=== PATIENT | female | born 1955 | race Caucasian/White ===

== ENCOUNTER 2024-10-17 15:55 | Outpatient (CLI) | payer BC, SELFPAY ==
--- NOTE | ~2024-10-17 | MR_ITS ---
EXAMINATION: MR abdomen wo/w con DATE: 10/17/2024 17:10 INDICATION: Abnormal CT scan TECHNIQUE: Magnetic resonance imaging (MRI) of the abdomen was performed without and with 15 mL Multi aileen intravenous contrast. Sequences included coronal T2-weighted SS-FSE, coronal and axial FS 2D-F IESTA, axial STIR FSE, axial T2-weighted SS-FSE, axial T2-weighted FS SS-FSE, axial diffusion-weighte d SE, axial dual-echo T1-weighted FSPGR, and axial and coronal T1-weighted LAVA. Postcontrast axial T 1-weighted LAVA images were obtained in a time course. Postcontrast coronal T1-weighted LAVA images w ere obtained. COMPARISON: None. FINDINGS: Heart size is normal. No pericardial or pleural effusion. There are few scattered <5 mm T2 hyperinten se nonenhancing hepatic cyst. There is mild intra and extra hepatic biliary ductal dilation likely re lated to prior cholecystectomy with the common bile duct measuring up to 8 mm. No choledocholithiasis . Spleen, pancreas and bilateral adrenal glands are normal. There are couple T2 hyperintense nonenhan cing cysts at the upper pole of the right kidney the larger measuring up to 2.7 cm. There is a 9 mm l ess T2 hyperintense nonenhancing likely complex proteinaceous cyst at the interpolar region of the le ft kidney. /Portions of bowels are unremarkable. No pathologically enlarged abdominal or upper pelvic lymphadenopathy. Mild thoracic levocurvature with mild thoracic and moderate lumbar spondylosis. IMPRESSION: 1. Bilateral renal cysts including a 9 mm likely complex proteinaceous cyst on the left. Reviewed, dictated and finalized at location A.
--- OUTSIDE RECORDS SUMMARY | 2024-10-17 16:34 | XMS_ITS | Encounter Summary ---
Author Organization [facility] Healthcare Address [address] [place] [address] Care Team Providers Care Honey Processor Name Role Phone Dulce Capellan Primary Care Provider [phone]- [phone] Encounter Details Date Type Department Care Team (Late st Contact Info) Description 10/06/2024 Results Follow-Up [facility] Family Medicine [address] [place] [address] Dulce Capellan PA [address] [place] [address] Social History Tobacco Use Types Packs/Day Years Used Date Smoking Tobacco: Every Day Cigarettes 2 40 Smokeless Tobacco: Never Alcohol Use Standard Drinks/Week Comments Never 0 (1 standard drink = 0.6 oz pur e alcohol) AUDIT-C Answer Date Recorded Q1: How often do you have a drink containing alcohol? Never 09/27/2024 Q2: How many drinks containi ng alcohol do you have on a typical day when you are drinking? Patient does not drink Q3: How often do you have si x or more drinks on one occasion? 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 Gender Identity Female 10/25/2019 7:49 AM CDT Sexual Orientation Straight 10/25/2019 7: 49 AM CDT Occupation Industry Job Start Date Job End Date [facility] [employer] Company Not on jackson e Not on file Not on file documented as of this encounter Plan of Treatment Not on file documented as of this encounter Visit Diagnoses Not on filedocumented in this encounter Care Teams Honey Processor Relationship Specialty Start Date End Date Dulce Capellan PA [address] [facility] [address] [place] [address] PCP - General 07/30/18 documented as of this encounter
--- OUTSIDE RECORDS SUMMARY | 2024-10-17 16:34 | XMS_ITS | Referral Summary ---
Author Organization [facility] [address] [facility] Address [address] [place] [address] Care Team Providers Care Websphere Portal Developer Name Role Phone Dulce Capellan Primary Care Provider [phone]- [phone] Encounters Date Type Department Care Team Description 10/06/2024 Results Follow-Up [place] [id number] [facility] [address] [place] [phone] Dulce Capellan PA 10/06/2024 8:25 AM CDT - 10/06/2024 11:59 PM CDT Hospital Encounter [facility] Office Bldg [address] [address] Menopause Discharge Disposition: Discharge to home or self care 09/27/2024 8:00 AM CDT Office Visit [place] [address] [facility] [address] [place] [phone] uDlce Capellan PA Type 2 diabetes mellitus without complication, without long-term current use of insulin (HCC) (Primary Dx); Hyperlipidemia associated with type 2 diabetes mellitus (HCC); Hypertension associated with diabetes (HCC); Polycythemia; Acquired hypothyroidism; Other emphysema (HCC); Cigarette smoker; Primary osteoarthritis of both hands; OAB (overactive bladder); BMI 26.0-26.9,adult 09/14/2024 Results Follow-Up [facility] [address] [facility] [address] [place] [address] Dulce Capellan PA 09/01/2024 Results Follow-Up [facility] [address] [place] [address] [address] [place] [address] Dulce Capellan PA 08/24/2024 7:10 AM CDT - 08/24/2024 11:59 PM CDT Hospital Encounter [address] [address] Discharge Disposition: Discharge to home or self care 08/23/2024 6:23 AM CDT - 08/23/2024 11:59 PM CDT Hospital Encounter [address] [address] Cigarette smoker Discharge Disposition: Discharge to home or self care 08/18/2024 Orders Only [address] [place] [phone] Dulce Capellan PA Hyperlipidemia associated with type 2 diabetes mellitus (HCC) (Primary Dx); Hypertension associated with diabetes (HCC); Acquired hypothyroidism; Type 2 diabetes mellitus without complication, without long-term current use of insulin (HCC) from Last 3 Months Allergies No known active allergies Medications coenzyme Q10 200 mg capsule Take 1 capsule (200 mg total) by mouth daily Active cholecalciferol (VITAMIN D-3) 5,000 unit tablet Ac tive ginkgo biloba 40 mg tablet Take by mouth Active iiezwy-hgpg-rfyx- levomef-silic 10-50-500-0.5 mg capsule Take by mouth Active magnesium oxide 400 mg magnesium capsule Take 1 capsule by mouth daily Active multivitamin tabletIndications :Vitamin Deficiency Prevention Take 1 tablet by mouth Active budesonide-glycop yr-formoterol (Breztri Aerosphere) 160-9-4.8 mcg/actuation inhalerIndication s:Other emphysema (HCC) Inhale 2 puffs 2 (two) times a day 024 Active Additional Information Patient not taking.Reported on 09/27/2024 levothyroxine (SYNTHROID) 50 mcg tabletIndications :Acquired hypothyroidism TAKE 1 TABLET BY MOUTH ONCE DAILY BEFORE BREAKFAST 100 tablet 1 025 Active TURMERIC ORAL Take by mouth Ac tive aspirin 81 mg chewable tablet Take 1 tablet (81 mg total) by mouth daily Active lisinopriL (PRINIVIL,ZESTRIL ) 5 mg tabletIndications :Essential hypertension Take 1 tablet by mouth once daily 90 tablet 025 Active rosuvastatin (CRESTOR) 10 mg tabletIndications :Mixed hyperlipidemia Take 1 tablet by mouth once daily 90 tablet 025 Active tolterodine LA (DETROL LA) 4 mg 24 hr capsule Take 1 capsule by mouth once daily 90 capsule 025 Active tolterodine LA (DETROL LA) 4 mg 24 hr capsule Take 1 capsule by mouth once daily 90 capsule 025 2024 Discontinued rosuvastatin (CRESTOR) 10 mg tabletIndications :Mixed hyperlipidemia Take 1 tablet by mouth once daily 90 tablet 025 2024 Discontinued lisinopriL (PRINIVIL,ZESTRIL ) 5 mg tabletIndications :Essential hypertension Take 1 tablet by mouth once daily 90 tablet 025 2024 Discontinued Active Problems Problem Noted Date Diagnosed Date Primary osteoarthritis of both hands 09/27/2024 Assessment & Plan (09/27/2024 10:00 AM CDT): Patient feels stiffness in multiple joints, including the hands. Has a history of sedentary lifestyle, especially with sitting at work. RA workup revealed negative MADDISON. Likely osteoarthritic changes with age. - Stay as active as you can to prevent joint stiffness - Keep taking your Vitamin D and B12 supplements - Get plenty of rest and stay hydrated COPD (chronic obstructive pulmonary disease) Assessment & Plan (09/27/2024 9:56 AM CDT): Patient has chronic productive cough with 80 pack year smoking history. Breztri inhaler helps with the coughing fits. Not willing to quit smoking yet. - Take your Chantix to help with quitting smoking - Use Breztri as prescribed as needed Assessment & Plan (06/13/2024 12:03 AM DRYWALL FINISHING FOREMAN): Patient with COPD. Continue with Jovan Strongly encouraged complete smoking cessation. Low-dose CT is up-to-date Polycythemia 05/05/2024 Assessment & Plan (09/27/2024 9:54 AM CDT): Suspected diagnosis of polycythemia associated with chronic tobacco use. RBCs are trending down and work-up for polycythemia vera is negative so far. Found lesion of kidney on CT which will be evaluated tomorrow with MRI. Patient has no complaints or new symptoms at this time. - Keep your appointments with oncology - Smoking cessation Assessment & Plan (06/13/2024 12:04 AM DRYWALL FINISHING FOREMAN): Patient with persistent elevation of her hemoglobin hematocrit. Recommend referral to Hematology for further assistance in evaluating underlying cause. Discussed options and will refer to Dr. Solis or provider 1st available in the office. Will await their recommendation Assessment & Plan (05/05/2024 8:53 AM DRYWALL FINISHING FOREMAN): This is a significant, separately identifiable problem that was evaluated and managed on the same day as the wellness exam Patient has had persistent elevation of her red blood cells. She really has not been symptomatic and has a heavy smoker I have just been monitoring. She is noting more constitutional symptoms at this point. Will get additional lab work and follow- up pending the results. Advised may need to see Hematology. Breast cancer screening by mammogram 09/27/2023 Assessment & Plan (09/27/2023 11:12 PM CDT): Mammogram order provided Menopause 09/27/2023 Assessment & Plan (05/05/2024 8:52 AM DRYWALL FINISHING FOREMAN): Check DEXA Assessment & Plan (09/27/2023 11:12 PM CDT): Check DEXA BMI 26.0-26.9,adult 03/30/2023 Assessment & Plan (09/27/2024 8:03 AM CDT): Discussed the patient's BMI. The BMI is above average. BMI management plan is completed. BMI Follow-up includes: nutrition counseling, exercise counseling and education provided. Assessment & Plan (06/07/2024 9:15 AM DRYWALL FINISHING FOREMAN): Discussed the patient's BMI. The BMI is above average. BMI management plan is completed. BMI Follow-up includes: nutrition counseling, exercise counseling and education provided. Assessment & Plan (05/05/2024 7:38 AM DRYWALL FINISHING FOREMAN): Weight/BMI is in healthy range. Continue healthy lifestyle to maintain. Assessment & Plan (04/19/2024 11:46 AM DRYWALL FINISHING FOREMAN): Weight/BMI is in healthy range. Continue healthy lifestyle to maintain. Assessment & Plan (11/23/2023 3:25 PM CDT): Weight/BMI is in healthy range. Continue healthy lifestyle to maintain. Assessment & Plan (09/27/2023 11:10 PM CDT): Weight/BMI is in healthy range. Continue healthy lifestyle to maintain. Assessment & Plan (03/30/2023 7:45 AM CDT): Weight/BMI is in healthy range. Continue healthy lifestyle to maintain. Cigarette smoker 07/17/2020 Assessment & Plan (09/27/2024 9:58 AM CDT): Quitting smoking can help reduce your risk for serious chronic health conditions. There are many options to help make quitting easier. - Take your Chantix to help with quitting smoking Assessment & Plan (06/13/2024 12:03 AM DRYWALL FINISHING FOREMAN): Encouraged smoking cessation. Discussed 3 minutes. Reviewed options for assistance with cessation. Reviewed long filler cigar roller machine sequela associated with smoking. Pt is considering cessationa but declines assistance at this time but may contact the office at anytime for further help as they desire. Assessment & Plan (05/05/2024 8:52 AM DRYWALL FINISHING FOREMAN): Encouraged smoking cessation. Discussed 3 minutes. Reviewed options for assistance with cessation. Reviewed usp sequela associated with smoking. Pt declines assistance at this time but may contact the office at anytime for further help as they desire. Will order low-dose CT for August of 2024 Assessment & Plan (09/27/2023 11:10 PM CDT): Encouraged smoking cessation. Discussed 3 minutes. Reviewed options for assistance with cessation. Reviewed usp sequela associated with smoking. Pt declines assistance at this time but may contact the office at anytime for further help as they desire. Assessment & Plan (03/30/2023 8:15 AM CDT): Encouraged smoking cessation. Discussed 3 minutes. Reviewed options for assistance with cessation. Reviewed long filler cigar roller machine sequela associated with smoking. Pt declines assistance at this time but may contact the office at anytime for further help as they desire. Patient is not quite ready to stop. She does have Chantix home for when she is ready Low-dose CT screening will be due after April 27 at [facility] Assessment & Plan (10/23/2022 10:54 PM CDT): Encouraged smoking cessation. Discussed 3 minutes. Reviewed options for assistance with cessation. Reviewed usp sequela associated with smoking. Pt declines assistance at this time but may contact the office at anytime for further help as they desire. Assessment & Plan (03/29/2022 12:40 PM CDT): Encouraged smoking cessation. Discussed 3 minutes. Reviewed options for assistance with cessation. Reviewed long filler cigar roller machine sequela associated with smoking. Pt declines assistance at this time but may contact the office at anytime for further help as they desire. Due for low-dose CT. Will order at [facility] Assessment & Plan (09/21/2021 8:51 PM CDT): Encouraged smoking cessation. Discussed 3 minutes. Reviewed options for assistance with cessation. Reviewed long filler cigar roller machine sequela associated with smoking. Pt declines assistance at this time but may contact the office at anytime for further help as they desire. Assessment & Plan (11/30/2020 9:10 AM CDT): Encouraged smoking cessation. Discussed 3 minutes. Reviewed options for assistance with cessation. Reviewed long filler cigar roller machine sequela associated with smoking. Pt declines assistance at this time but may contact the office at anytime for further help as they desire. Assessment & Plan (07/17/2020 1:11 PM DRYWALL FINISHING FOREMAN): Encouraged smoking cessation. Discussed 3 minutes. Reviewed options for assistance with cessation. Reviewed usp sequela associated with smoking. Pt declines assistance at this time but may contact the office at anytime for further help as they desire. Will consider Chantix if not $700 like it was last year. Reviewed risks, benefit, alternatives, side effects and proper use. Pulmonary nodules/lesions, multiple 02/24/2020 Overview (07/17/2020): Due to repeat LDCT in 02/2021 Assessment & Plan (07/17/2020 1:08 PM DRYWALL FINISHING FOREMAN): Needs repeat LDCT in 02/2021 Assessment & Plan (02/25/2020 9:49 AM CDT): 02/22/2020 LDCT - 4 pulmonary nodules, benign appearing. Repeat in 1 year (02/2021) Renal lesion 02/24/2020 Overview (02/24/2020): LDCT -- incidental finding Assessment & Plan (02/25/2020 9:50 AM CDT): Incidental right kidney lesion. Needs additional follow-up with MRI. She desires to have it repeated at [facility]. Encounter for screening for malignant neoplasm of respiratory organs 10/12/2019 Assessment & Plan (10/23/2022 10:54 PM CDT): Will be due for low-dose CT in April. Will order at her March appointment. Encouraged smoking cessation Assessment & Plan (10/12/2019 11:45 AM CDT): Check LDCT. Hypertension associated with diabetes 01/16/2019 Assessment & Plan (09/27/2024 9:21 AM CDT): - Take blood pressure medication as prescribed - Monitor your blood pressure using a cuff at home (top number <120/130, bottom number <80/90) - Participate in 30-60 minutes of moderate exercise 5-6 days a week - Eat less salt by avoiding processed foods and canned foods. Buy fresh or fresh-frozen vegetables. (<1500 mg of sodium a day) - Get plenty of vegetables, fiber, nuts, beans, low-fat foods, fish in your diet - Limit alcohol consumption - Stop smoking Assessment & Plan (05/05/2024 8:46 AM DRYWALL FINISHING FOREMAN): Bp is stable/in acceptable range for any co-morbidities. Encouraged to limit sodium intake and exercise for weight control. Continue lisinopril Assessment & Plan (11/23/2023 3:26 PM CDT): Patient's blood pressure is elevated today. She forgot to take her medicine. Stressed the importance of taking on a daily basis. She is on lisinopril 5. Encouraged her to check it at home and give a call at the end of the week with an update on her rash as well as her blood pressure readings. Advised steroids can elevate the blood pressure so it is very important for her to take her medications as instructed. Assessment & Plan (09/27/2023 11:09 PM CDT): Bp is stable/in acceptable range for any co-morbidities. Encouraged to limit sodium intake and exercise for weight control. Stressed importance of continued A1c control to minimize the long filler cigar roller machine effects of diabetes. Bring accuchecks to office when instructed to do so. Check A1c about every 3-6 months. Take medication as prescribed. Get annual eye exam. Encouraged FARHAN/Statin if able to tolerate. Encouraged weight control and encouraged diabetic diet and exercise. Continue with diet management for diabetes. Continue lisinopril Assessment & Plan (03/30/2023 8:14 AM CDT): Bp is stable/in acceptable range for any co-morbidities. Encouraged to limit sodium intake and exercise for weight control. Continue lisinopril Assessment & Plan (10/23/2022 10:53 PM CDT): Bp is stable/in acceptable range for any co-morbidities. Encouraged to limit sodium intake and exercise for weight control. Continue lisinopril. Recommend taking readings at home and calling if she can get a hold of a cuff or come in a week with the nurse to confirm readings are at goal. Encouraged her to not smoke and to take her medicines as instructed prior to the visit. Assessment & Plan (03/29/2022 12:39 PM CDT): Bp is stable/in acceptable range for any co-morbidities. Encouraged to limit sodium intake and exercise for weight control. Continue lisinopril Assessment & Plan (11/30/2020 9:09 AM CDT): Bp is stable/in acceptable range for any co-morbidities. Encouraged to limit sodium intake and exercise for weight control. Continue lisinopril 5mg Assessment & Plan (07/17/2020 1:09 PM DRYWALL FINISHING FOREMAN): Bp is elevated today. She smoked just before she came in and is drinking her 3rd large cup of coffee. Encouraged to take readings at home and call in a week to see is sustained high, or just today. Encouraged to limit sodium intake and exercise for weight control. Assessment & Plan (10/12/2019 11:42 AM CDT): Bp is stable/in acceptable range for any co-morbidities. Encouraged to limit sodium intake and exercise for weight control. Continue lisinopril Assessment & Plan (01/22/2019 2:22 PM CDT): Bp is stable/in acceptable range for any co-morbidities. Encouraged to limit sodium intake and exercise for weight control. Grief 01/16/2019 Vitamin D deficiency 01/16/2019 Assessment & Plan (05/05/2024 8:54 AM DRYWALL FINISHING FOREMAN): Vitamin-D level is getting to the upper and of acceptable. Encouraged her to start taking every other day and then when she exhausted supply to just cut the dose in half. Assessment & Plan (09/27/2023 11:09 PM CDT): Supplement Assessment & Plan (03/30/2023 8:14 AM CDT): Supplement Assessment & Plan (10/23/2022 10:53 PM CDT): Supplement Assessment & Plan (03/29/2022 12:39 PM CDT): Supplement Assessment & Plan (11/30/2020 9:09 AM CDT): supplement Assessment & Plan (07/17/2020 1:09 PM DRYWALL FINISHING FOREMAN): supplement Assessment & Plan (10/12/2019 11:43 AM CDT): Continue supplement Assessment & Plan (01/22/2019 2:22 PM CDT): supplement OAB (overactive bladder) 01/16/2019 Assessment & Plan (10/08/2024 3:22 PM CDT): Symptoms are stable with Detrol LA 4 mg daily Assessment & Plan (05/05/2024 8:46 AM DRYWALL FINISHING FOREMAN): Stable with the Detrol. Continue same dose Assessment & Plan (03/30/2023 8:14 AM CDT): Continue Detrol. Symptoms are stable Assessment & Plan (10/23/2022 10:54 PM CDT): Patient has noticed some improvement with the Detrol LA 4 mg. Still having leakage. Discussed transitioning to similar medicine in same class verses Myrbetriq. She will check with her insurance to determine coverage and if covered will try it to see if we can get better control of her symptoms. If still not achieving control may consider referral to Urology. Some improvemewnt with the Detrol. Will check alin rodrigues for Myrbetriq Assessment & Plan (03/29/2022 12:39 PM CDT): Tried VESIcare but did not see much change. Discussed referral to urogynecologist she declines at this time. Will continue to monitor. Assessment & Plan (11/30/2020 9:09 AM CDT): Continue vesicare Assessment & Plan (07/17/2020 1:12 PM DRYWALL FINISHING FOREMAN): This is a significant, separately identifiable problem that was evaluated and managed on the same day as the wellness exam Discussed treatment options including medications. Check urine culture to rule out infection Vesicare to pharm. Provided information on GoodRx Reviewed risks, benefit, alternatives, side effects and proper use. F.u 8 weeks to reassess. Assessment & Plan (01/22/2019 2:22 PM CDT): This is a significant, separately identifiable problem that was evaluated and managed on the same day as the wellness exam Discussed starting medication but she not interested at this point. Encouraged Dimitri. Type 2 diabetes mellitus wit hout complication, without long-term current use of insulin 11/22/2018 Assessment & Plan (09/27/2024 9:53 AM CDT): - Will have to get your A1c checked every 3-6 months - Reasonable A1c of <7 - Check the bottoms of your feet - See your eye doctor yearly - Sweating, shaking, hunger and anxiety can indicate hypoglycemia - Weight management - Monitoring carb intake Assessment & Plan (05/05/2024 8:45 AM DRYWALL FINISHING FOREMAN): Stressed importance of continued A1c control to minimize the long filler cigar roller machine effects of diabetes. Bring accuchecks to office when instructed to do so. Check A1c about every 3-6 months. Take medication as prescribed. Get annual eye exam. Encouraged FARHAN/Statin if able to tolerate. Encouraged weight control and encouraged diabetic diet and exercise. Continue with diet control Assessment & Plan (09/27/2023 11:10 PM CDT): Stressed importance of continued A1c control to minimize the long filler cigar roller machine effects of diabetes. Bring accuchecks to office when instructed to do so. Check A1c about every 3-6 months. Take medication as prescribed. Get annual eye exam. Encouraged FARHAN/Statin if able to tolerate. Encouraged weight control and encouraged diabetic diet and exercise. Continue dietary management. Last A1c was 6.3 Assessment & Plan (03/30/2023 8:14 AM CDT): Stressed importance of continued A1c control to minimize the usp effects of diabetes. Bring accuchecks to office when instructed to do so. Check A1c about every 3-6 months. Take medication as prescribed. Get annual eye exam. Encouraged FARHAN/Statin if able to tolerate. Encouraged weight control and encouraged diabetic diet and exercise. Continue with diet control Assessment & Plan (10/23/2022 10:52 PM CDT): Stressed importance of continued A1c control to minimize the usp effects of diabetes. Bring accuchecks to office when instructed to do so. Check A1c about every 3-6 months. Take medication as prescribed. Get annual eye exam. Encouraged FARHAN/Statin if able to tolerate. Encouraged weight control and encouraged diabetic diet and exercise. She is diet controlled Assessment & Plan (03/29/2022 12:39 PM CDT): Stressed importance of continued A1c control to minimize the long filler cigar roller machine effects of diabetes. Bring accuchecks to office when instructed to do so. Check A1c about every 3-6 months. Take medication as prescribed. Get annual eye exam. Encouraged FARHAN/Statin if able to tolerate. Encouraged weight control and encouraged diabetic diet and exercise. Controlled with diet currently. Encouraged diabetic eye exam A1c is at goal Assessment & Plan (11/30/2020 9:10 AM CDT): Stressed importance of continued A1c control to minimize the usp effects of diabetes. Bring accuchecks to office when instructed to do so. Check A1c about every 3-6 months. Take medication as prescribed. Get annual eye exam. Encouraged FAHRAN/Statin if able to tolerate. Encouraged weight control and encouraged diabetic diet and exercise. Continue with diet control Assessment & Plan (07/17/2020 1:11 PM DRYWALL FINISHING FOREMAN): Stressed importance of continued A1c control to minimize the usp effects of diabetes. Bring accuchecks to office when instructed to do so. Check A1c about every 3-6 months. Take medication as prescribed. Get annual eye exam. Encouraged FARHAN/Statin if able to tolerate. Encouraged weight control and encouraged diabetic diet and exercise. Diet controlled. A1c much improved. Keep up the good work. Reassess in 4 months Assessment & Plan (10/12/2019 11:43 AM CDT): Pre-diabetes is a precursor to Dm. Stressed importance of working on diet (decrease your simple sugars and one carbohydrate with each meal) and increase you exercise to achieve weight loss and this will help prevent you from progressing to diabetes. Assessment & Plan (01/22/2019 2:24 PM CDT): This is a significant, separately identifiable problem that was evaluated and managed on the same day as the wellness exam Pre-diabetes is a precursor to Dm. Stressed importance of working on diet (decrease your simple sugars and one carbohydrate with each meal) and increase you exercise to achieve weight loss and this will help prevent you from progressing to diabetes. Hyperlipidemia associated with type 2 diabetes melyssa martinez 11/22/2018 Assessment & Plan (09/27/2024 9:21 AM CDT): Follow a Mediterranean Diet Eat a diet low in saturated fat, trans fats and cholesterol Participate in 30-60 minutes of moderate exercise 5-6 times a week Limit your consumption of alcohol Stop smoking Assessment & Plan (05/05/2024 8:45 AM DRYWALL FINISHING FOREMAN): Encouraged patient to follow low fat/low chol diet like the Mediterranean diet. Increase good fats in the diet. Increase exercise. Monitor labs as needed. Continue with Crestor 10 mg Assessment & Plan (09/27/2023 11:09 PM CDT): Encouraged patient to follow low fat/low chol diet like the Mediterranean diet. Increase good fats in the diet. Increase exercise. Monitor labs as needed. Continue Crestor Assessment & Plan (03/30/2023 8:14 AM CDT): Encouraged patient to follow low fat/low chol diet like the Mediterranean diet. Increase good fats in the diet. Increase exercise. Monitor labs as needed. Continue Crestor Assessment & Plan (10/23/2022 10:52 PM CDT): Encouraged patient to follow low fat/low chol diet like the Mediterranean diet. Increase good fats in the diet. Increase exercise. Monitor labs as needed. Continue Crestor Assessment & Plan (03/29/2022 12:39 PM CDT): Encouraged patient to follow low fat/low chol diet like the Mediterranean diet. Increase good fats in the diet. Increase exercise. Monitor labs as needed. Continue statin Assessment & Plan (11/30/2020 9:09 AM CDT): Encouraged patient to follow fat/low chol diet like the Mediterranean diet. Increase good fats in the diet. Increase exercise. Monitor labs as needed. Continue statin Assessment & Plan (07/17/2020 1:11 PM DRYWALL FINISHING FOREMAN): Encouraged patient to follow fat/low chol diet like the Mediterranean diet. Increase good fats in the diet. Increase exercise. Monitor labs as needed. Continue statin Assessment & Plan (10/12/2019 11:43 AM CDT): Encouraged patient to continue low fat/low chol diet. Continue exercise. Increase good fats in the diet. Monitor labs as needed. Stable with crestor Assessment & Plan (01/22/2019 2:23 PM CDT): Encouraged patient to continue low fat/low chol diet. Continue exercise. Increase good fats in the diet. Monitor labs as needed. Acquired hypothyroidism 08/25/2017 Assessment & Plan (09/27/2024 9:22 AM CDT): Take your thyroid hormone medication as prescribed Monitor signs for dangerously low thyroid hormone levels like slow heart rate, low body temperature, low blood pressure or altered mental status and seek medical attention Assessment & Plan (05/05/2024 8:51 AM [employer]ISH[employer]): Continue levothyroxine. TSH is slightly elevated. She states she is unsure she has been taking her medicine on a regular basis so will recheck it when I draw additional labs to confirm TSH level before changing her medication. Stressed importance of taking medication daily in the morning on an empty stomach for best absorption Assessment & Plan (09/27/2023 11:09 PM CDT): Continue levothyroxine. Monitor labs. Continue levo 50 mcg Assessment & Plan (03/30/2023 8:14 AM CDT): Continue levothyroxine. Monitor labs. Assessment & Plan (10/23/2022 10:53 PM CDT): Continue levothyroxine. Monitor labs. Assessment & Plan (03/29/2022 12:39 PM CDT): Continue levothyroxine. Monitor labs. Assessment & Plan (09/21/2021 8:51 PM CDT): Continue levothyroxine. Monitor labs. Assessment & Plan (11/30/2020 9:09 AM CDT): Continue levothyroxine Assessment & Plan (07/17/2020 1:11 PM [employer]EM[employer]): Continue levothyroxine Assessment & Plan (10/12/2019 11:43 AM CDT): Stable with levothyroxine Assessment & Plan (01/22/2019 2:23 PM CDT): Check labs. Continue levothyroxine Resolved Problems Problem Noted Date Diagnosed Date Resolved Date Arthralgia 05/05/2024 06/13/2024 Assessment & Plan (05/05/2024 8:53 AM [employer]EM[employer]): This is a significant, separately identifiable problem that was evaluated and managed on the same day as the wellness exam Patient has noticing increased fatigue, generalized body aches and just feeling a little weaker. Recommend MADDISON, CRP and sed rate Annual physical exam 05/05/2024 12/30/2 024 Assessment & Plan (05/05/2024 8:53 AM [employer]ISHING [employer]EMAN): Encouraged healthy lifestyle, good nutrition and exercise. Encouraged Calcium and Vitamin D and weight bearing exercise for bone health. Reviewed immunizations Reviewed age appropirate screenings. Sialodocholithiasis 04/28/2024 06/13/20 24 Acute parotitis 04/28/2024 06/13/2024 Assessment & Plan (05/05/2024 8:51 AM [employer]ING [employer]EM[employer]): Symptoms resolved with passing of the stone and completion of the antibiotic. Continue to monitor and if symptoms would return she needs to be seen immediately Enlarged parotid gland 04/19/202405/05 Assessment & Plan (04/19/2024 7:52 PM [employer]EM[employer]): Patient presents with a swollen right parotid gland. She states it is increasing in size significantly after eating and then will decrease down. Discussed with patient the possibility of a parotid stone the that is blocking the duct creating the symptoms. Advised she could try a lemon drops to see if it increases the swelling and possibly discomfort and may help dislodge the stone. Will go ahead and treat with Augmentin empirically as covering lower respiratory infection to make sure we do not have that as a cause. Recommend CT soft tissue head and neck and parotid gland for further evaluation. If she would begin to notice increased swelling redness teeth pain or facial erythema she is to follow up immediately. Follow up pending the CT results which are going to be done STAT Lower respiratory infection 04/19/2024 05/05/2024 Assessment & Plan (04/19/2024 7:50 PM [employer]EM[employer]): Patient is congested and states she is coughing up some discolored sputum. Long- term smoker. Could be COPD exacerbation versus viral infection versus lower respiratory bacterial infection. Continue with breasts tree and albuterol as needed. Will start her on Augmentin which would cover and had only a lower respiratory infection but also parotitis. One tablet b.i.d. of Augmentin times 10 days. Continue to monitor closely Rhus dermatitis 11/23/2023 05/05/2024 Assessment & Plan (11/23/2023 3:25 PM CDT): Patient has dermatitis. Suspect maybe a Rhu dermatitis she was pulling a vine. Her eyes very swollen and has a rash down her arm and onto her hand. Discussed steroid as treatment. Will go ahead and give IM Kenalog 40 mg in the office and follow with a taper of steroid at 60mg x 3 days, 40mg x 3 days 20mg x 3 days, . Advised this can affect her blood pressure and diabetes so to monitor very closely. Stressed its importance that she takes her medication. She has to call the end of the week with an update or sooner for any other problems or concerns Dermatitis 11/23/2023 05/05/2024 Other emphysema 09/27/2023 06/13/2024 Assessment & Plan (05/05/2024 8:46 AM [employer]EM[employer]): Patient with known COPD. Strongly encouraged complete smoking cessation. Patient states she is just not ready. Continue Breztri daily and albuterol p.r.n. Assessment & Plan (09/27/2023 11:14 PM CDT): Patient has COPD and long-term history of smoking. She is noticing she is more short of breath. Will start her on breasts tree. Reviewed risks benefits alternatives side effects and proper use. Will see how she tolerates and how her breathing is with follow-up. Essential hypertension 03/30/202303/30 Mixed hyperlipidemia 03/30/2023 023 Annual physical exam 03/30/2023 024 Assessment & Plan (03/30/2023 8:16 AM CDT): Encouraged healthy lifestyle, good nutrition and exercise. Encouraged Calcium and Vitamin D and weight bearing exercise for bone health. Reviewed immunizations Reviewed age appropirate screenings. BMI 28.0-28.9,adult 10/23/2022 03/30/20 23 Assessment & Plan (10/23/2022 8:08 AM CDT): Weight/BMI is in healthy range. Continue healthy lifestyle to maintain. Need for immunization against influenza 03/29/2022 10/23/2022 Assessment & Plan (03/29/2022 12:45 PM CDT): Flu vaccine updated in the office today Need for Tdap vaccination 03/29/2022 Assessment & Plan (03/29/2022 12:45 PM CDT): Tdap updated in office today Annual physical exam 03/29/2022 023 Assessment & Plan (03/29/2022 12:45 PM CDT): Encouraged healthy lifestyle, good nutrition and exercise. Encouraged Calcium and Vitamin D and weight bearing exercise for bone health. Reviewed immunizations Reviewed age appropirate screenings. Breast cancer screening by mammogram 09/21/2021 03/30/2023 Assessment & Plan (10/23/2022 10:55 PM CDT): Mammogram order provided Assessment & Plan (03/29/2022 12:40 PM CDT): Mammogram order provided Assessment & Plan (09/21/2021 9:02 PM CDT): Mammogram order provided Essential hypertension 09/19/202103/29 Assessment & Plan (09/21/2021 9:02 PM CDT): Bp is stable/in acceptable range for any co-morbidities. Encouraged to limit sodium intake and exercise for weight control. Continue lisinopril BMI 28.0-28.9,adult 02/14/2021 10/24/19 23 Assessment & Plan (03/29/2022 12:41 PM CDT): Weight/BMI is in healthy range. Continue healthy lifestyle to maintain. Assessment & Plan (09/19/2021 8:46 AM CDT): Weight/BMI is in healthy range. Continue healthy lifestyle to maintain. Assessment & Plan (02/14/2021 11:05 AM CDT): Weight/BMI is in healthy range. Continue healthy lifestyle to maintain. Contact dermatitis due to plants, except food 02/15/2005/05/2024 Assessment & Plan (02/14/2021 6:47 PM CDT): Advised f/u in the next week if not improving, sooner if worsening Essential hypertension 11/30/202011/30 BMI 29.0-29.9,adult 07/17/2020 02/15/20 21 Assessment & Plan (11/30/2020 7:15 AM CDT): Weight/BMI is in healthy range. Continue healthy lifestyle to maintain. Assessment & Plan (07/17/2020 9:26 AM [employer]): Weight/BMI is in healthy range. Continue healthy lifestyle to maintain. Annual physical exam 04/15/2020 021 Assessment & Plan (07/17/2020 1:11 PM [employer]): Encouraged healthy lifestyle, good nutrition and exercise. Encouraged Calcium and Vitamin D and weight bearing exercise for bone health. Reviewed immunizations Reviewed age appropirate screenings. Annual physical exam 01/22/2019 020 Assessment & Plan (01/22/2019 2:23 PM CDT): Encouraged healthy lifestyle, good nutrition and exercise. Encouraged Calcium and Vitamin D and weight bearing exercise for bone health. Reviewed immunizations Reviewed age appropirate screenings. Breast cancer screening 01/22/201903/15 Assessment & Plan (01/22/2019 2:24 PM CDT): Mammogram order provided BMI 28.0-28.9,adult 01/17/2019 07/17/19 21 Assessment & Plan (02/25/2020 9:51 AM CDT): Weight/BMI is in healthy range. Continue healthy lifestyle to maintain. Assessment & Plan (10/12/2019 11:44 AM CDT): Weight/BMI is in healthy range. Continue healthy lifestyle to maintain. Assessment & Plan (01/17/2019 11:52 AM CDT): Weight/BMI is in healthy range. Continue healthy lifestyle to maintain. Smokers' cough (CMS/HCC) 01/17/2019 Assessment & Plan (11/30/2020 9:08 AM CDT): Stop smoking Assessment & Plan (01/22/2019 2:22 PM CDT): This is a significant, separately identifiable problem that was evaluated and managed on the same day as the wellness exam Encouraged smoking cessation. Will Check LDCT. Discussed starting inhaler and or PFTs to prove COPD but she declines at this point. Cigarette smoker 01/16/2019 07/17/2020 Assessment & Plan (02/25/2020 9:54 AM CDT): Pt desires assistance with cessation. Has tolerated WellbutrinXL at 300mg but has not had success in cessation. Discussed options at length. Will start Chantix Starter Pack. Take as directed. Reviewed risks, benefits, alternatives, side effects and proper use. Encouraged to decreased cigs as tolerated. Plan to stay on the Chantix 4-6 months, even if successful in stopping quickly. F.u if any increased emotional sxs or suicidal thoughts Assessment & Plan (10/12/2019 11:44 AM CDT): Encouraged smoking cessation. Discussed 3 minutes. Reviewed options for assistance with cessation. Reviewed usp sequela associated with smoking. Pt declines assistance at this time but may contact the office at anytime for further help as they desire. Continue with Wellbutrin and will reassess as she gets back out of working from home to see if change is needed. Assessment & Plan (01/22/2019 2:23 PM CDT): Encouraged smoking cessation. Discussed approx 3 minutes. Pt desires assistance with cessation. Discussed options at length. Will start Chantix Starter Pack. Take as directed. Reviewed risks, benefits, alternatives, side effects and proper use. Encouraged to decreased cigs as tolerated. Plan to stay on the Chantix 4-6 months, even if successful in stopping quickly. F.u if any increased emotional sxs or suicidal thoughts Mixed hyperlipidemia 08/25/2017 022 Assessment & Plan (09/21/2021 9:02 PM CDT): Encouraged patient to follow low fat/low chol diet like the Mediterranean diet. Increase good fats in the diet. Increase exercise. Monitor labs as needed. Continue Crestor Adjustment disorder 04/23/2017 05/05/20 24 Immunizations Immunization Administration Dates Next Due Influenza, Quadrivalent, Rec ombinant, Egg Free, Preservative Free, Intramuscular 04/07/2020 Influenza, Quadrivalent, Spl it, Preservative Free, Intramuscular 03/25/2022 Influenza, Trivalent, IM (MDV) 04/06/2013 Influenza, Trivalent, Preser vative Free, Intramuscular 04/02/2015 Influenza, Unspecified 06/15/2023(Deferr ed: Patient Refused),03/30/2023(Deferred: Patient Refused) Pneumococcal Conjugate Pcv20 06/15/2023(Deferred : Patient Refused) Tdap 03/25/2022 ZOSTER Recombinant 09/08/2020,04/07/2020 Social History Tobacco Use Types Packs/Day Years Used Date Smoking Tobacco: Every Day Cigarettes 2 40 Smokeless Tobacco: Never Tobacco Cessation:Ready to Q uit: Not Asked; Counseling Given: Not Answered Alcohol Use Standard Drinks/Week Comments Never 0 [...] on file Legal Sex Female 9:01 PM [employer] Gender Identity Female 10/25/2019 7:49 AM CDT Sexual Orientation Straight 10/25/2019 7: 49 AM CDT Occupation Industry Job Start Date Job End Date [employer] Not on [employer] Not on file Not on file Last Filed Vital Signs Vital Sign Reading Time Taken Comments Blood Pressure 126/84 09/27/2024 7:59 AM CDT Pulse 86 09/27/2024 7:59 AM CDT Temperature 36.4 C (97.5 F) 09/27/2024 7:59 AM CDT Respiratory Rate 18 04/28/2024 1:04 PM [employer] Oxygen Saturation 99% 09/27/2024 7:59 AM CDT Inhaled Oxygen Concentration - - Weight 73.6 kg (162 lb 3.2 oz) 09/27/2024 7:59 A M CDT Height 167.6 cm (5' 6 ) 09/27/2024 7:59 AM CDT Body Mass Index 26.18 09/27/2024 7:59 AM CDT Plan of Treatment Not on file Procedures Procedure Name Priority Date/Time Associated Diagnosis Comments DEXA AXIAL SKELETON BONE DENSITY 1 OR MORE SITES Schedule Routine, Read Routine (OP Routine) 10/06/2024 8:57 AM CDT Menopause ALBUMIN CREATININE RATIO, URINE Routine 09/13/2024 6:43 AM CDT Type 2 diabetes mellitus without complication, without long-term current use of insulin (HCC) TSH Routine 09/13/2024 6:40 AM CDT Acquired hypothyroidism LIPID PANEL Routine 09/13/2024 6:40 AM CDT Hyperlipidemia associated with type 2 diabetes mellitus (HCC) HEMOGLOBIN A1C Routine 09/13/2024 6:40 AM CDT Type 2 diabetes mellitus without complication, without long-term current use of insulin (HCC) COMPREHENSIVE METABOLIC PANEL Routine 09/13/2024 6:40 AM CDT Hypertension associated with diabetes (HCC) Type 2 diabetes mellitus without complication, without long-term current use of insulin (HCC) US ABDOMEN COMPLETE Schedule Routine, Read Routine (OP Routine) 08/24/2024 7:54 AM CDT Secondary polycythemia Hematuria, unspecified type CT LUNG CANCER SCREENING Schedule Routine, Read Routine (OP Routine) 08/23/2024 6:37 AM CDT Cigarette smoker SCREENING MAMMOGRAM BILATERAL W [place] Schedule Routine, Read Routine (OP Routine) 04/28/2024 9:02 AM [employer]EM[employer] Breast cancer screening by mammogram HM DIABETES EYE EXAM Routine 05/07/2020 HM COLONOSCOPY Routine 07/03/2017 [employer] S[employer]IOR TE[employer] CONSULTANT PAP (IMAGE GUIDED) LIQUID-BASED PREP Routine 04/24/2017 11:40 AM [employer] FINISHING [employer]EMAN from Last 3 Months or Most Recently Relevant to Health Maintenance Results * Dexa Axial Skeleton Bone Density 1 or 2 Site (10/06/2024 8:57 AM CDT) Anatomical Region Laterality Modality Body N/A Mammography 10/06/2024 2:59 PM CDT Narrative 10/06/2024 3:02 PM CDT EXAM DESCRIPTION: DEXA AXIAL SKELETON BONE DENSITY 1 OR MORE SITES REASON FOR STUDY: 68 y/o year old F with given history of: menopause Diploma Medical Assistant/Model: [employer] A (S/N [id number]) Facility LSC value of 0.022 for the AP spine, 0.027 for the femur, and 0.023 for the forearm. CLINICAL INFORMATION: Current height: 65 inches Maximum height: 66 inches Weight: 162 pounds Risk factors: Postmenopausal, smoking history COMPARISON: 08/16/2013 Dissimilar scan types or analysis methods precludes assessment for calculating a significant change. FINDINGS: AP LUMBAR SPINE L1-L4: Total BMD is 1.040 g/cm2 T-score is -0.1 LEFT HIP: Total BMD is 0.864 g/cm2 T-score is -0.6 Femoral neck BMD is 0.704 g/cm2 T-score is -1.3 FRAX: 10 year risk for a major osteoporotic fracture is 9.0 %, 10 year risk for a hip fracture is 1.5 % Per National Osteoporosis Foundation guidelines, this patient does not meet the criteria for pharmacological treatment of patients with FRAX 10 year major osteoporotic fracture risk scores of = or greater than 20% or a 10 year probability of a hip fracture = or greater than 3%, to reduce fracture risk. Additional factors such as frequent falls are not represented in FRAX and warrant individual clinical judgment. IMPRESSION: Low Bone Mass. REFERENCE: Bone mineral density: T-Score: Normal (T-score above or = -1.0) Low bone mass (T-score between -1.0 and -2.5) replaces the previously used term osteopenia Osteoporosis (T-score = or below -2.5) Z-Score: Within the expected range for age (Z-score above -2.0) Below the expected range for age (Z-score is -2.0 or below) Please see below follow up recommendations. Medical evaluation for secondary causes of low bone mineral density may be appropriate. FRAX is a World Health Organization validated fracture risk assessment tool that calculates a person's 10 year probability of a major osteoporosis related fracture and hip fracture. According to the National Osteoporosis Foundation guidelines, postmenopausal women and men age 50 or older with low bone mass and a 10 year probability of a major osteoporosis related fracture = or greater than 20% or a 10 year probability of a hip fracture = or greater than 3% should be considered for pharmacological treatment for the prevention of osteoporosis. For further information, including treatment recommendations, please refer to the 2019 ISCD Official Positions (http://www.iscd.org) and the NOF's Clinician's Guide to Prevention and Treatment of Osteoporosis (http://www.nof.org/professionals/clinical-guidelines) THIS IS AN ELECTRONICALLY VERIFIED FINAL REPORT 10/06/2024 3:02 PM - Electronically signed by Shadi Ramírez M.D. MF: ANDRE Report ID: [id number] Reading Location: [id number] Procedure Note Shadi Ramírez MD - 10/06/2024 EXAM DESCRIPTION: DEXA AXIAL SKELETON BONE DENSITY 1 OR MORE SITES REASON FOR STUDY: 68 y/o year old F with given history of: menopause Diploma Medical Assistant/Model: [employer] A (S/N [id number]) Facility LSC value of 0.022 for the AP spine, 0.027 for the femur, and0.023 for the forearm. CLINICAL INFORMATION: Current height: 65 inches Maximum height: 66 inches Weight: 162 pounds Risk factors: Postmenopausal, smoking history COMPARISON: 08/16/2013 Dissimilar scan types or analysis methods precludes assessment for calculating a significant change. FINDINGS: AP LUMBAR SPINE L1-L4: Total BMD is 1.040 g/cm2 T-score is -0.1 LEFT HIP: Total BMD is 0.864 g/cm2 T-score is -0.6 Femoral neck BMD is 0.704 g/cm2 T-score is -1.3 FRAX: 10 year risk for a major osteoporotic fracture is 9.0 %, 10 year risk fora hip fracture is 1.5 % Per National Osteoporosis Foundation guidelines, this patient does notmeet the criteria for pharmacological treatment of patients with FRAX 10 yearmajor osteoporotic fracture risk scores of = or greater than 20% or a 10 year probability of a hip fracture = or greater than 3%, to reduce fracturerisk. Additional factors such as frequent falls are not represented in FRAX and warrant individual clinical judgment. IMPRESSION: Low Bone Mass. REFERENCE: Bone mineral density: T-Score: Normal (T-score above or = -1.0) Low bone mass (T-score between -1.0 and -2.5) replaces thepreviously used term osteopenia Osteoporosis (T-score = or below -2.5) Z-Score: Within the expected range for age (Z-score above -2.0) Below the expected range for age (Z-score is -2.0 or below) Please see below follow up recommendations. [facility] of low bone mineral density may be appropriate. FRAX is a World Health Organization validated fracture risk assessmenttool that calculates a person's 10 year probability of a major osteoporosisrelated fracture and hip fracture. According to the National OsteoporosisFoundation guidelines, postmenopausal women and men age 50 or older with low bonemass and a 10 year probability of a major osteoporosis related fracture = or greater than 20% or a 10 year probability of a hip fracture = or greaterthan 3% should be considered for pharmacological treatment for the preventionof osteoporosis. For further information, including treatment recommendations, please referto the 2019 ISCD Official Positions (http://www.iscd.org) and the NOF's Clinician's Guide to Prevention and Treatment of Osteoporosis (http://www.nof.org/professionals/clinical-guidelines) THIS IS AN ELECTRONICALLY VERIFIED FINAL REPORT 10/06/2024 3:02 PM - Electronically signed by Shadi Ramírez M.D. MF: ANDRE Report ID: [id number] Reading Location: [place] [address] [facility] IMG DXA PROCEDURES Final R esult * Albumin Creatinine Ratio, Urine (09/13/2024 6:43 AM CDT) Creatinine, ur 52 20 - 275 mg/dL [facility] Microalbumin, ur 0.3 See Note: mg/dL [facility] Comment: Reference Range: Reference Range Not established Microalbumin/creat ratio 6 <30 mg/g creat [facility] Comment: The ADA defines abnormalities in albumin excretion as follows: Albuminuria Category Result (mg/g creatinine) Normal to Mildly increased <30 Moderately increased 30-299 Severely increased > OR = 300 The ADA recommends that at least two of three specimens collected within a 3-6 month period be abnormal before considering a patient to be within a diagnostic category. Urine 09/13/2024 6:43 AM CDT 09/13/2024 6:43 AM CDT [facility] URINE ORDERABLES Final Result [facility] [address] [id number] * TSH (09/13/2024 6:40 AM CDT) TSH 4.18 0.40 - 4.50 mIU/L [facility] Blood 09/13/2024 6:40 AM CDT 09/13/2024 6:41 AM CDT Narrative [facility] - 09/14/2024 2:34 AM CDT FASTING:YES FASTING: YES [facility] BLOOD ORDERABLES Final Result [facility] [address] [id number] * (ABNORMAL) Hemoglobin A1c (09/13/2024 6:40 AM CDT) Hgb A1C 6.2(H) <5.7 % of total Hgb [facility] Comment: For someone without known diabetes, a hemoglobin A1c value between 5.7% and 6.4% is consistent with prediabetes and should be confirmed with a follow-up test. For someone with known diabetes, a value <7% indicates that their diabetes is well controlled. A1c targets should be individualized based on duration of diabetes, age, comorbid conditions, and other considerations. This assay result is consistent with an increased risk of diabetes. Currently, no consensus exists regarding use of hemoglobin A1c for diagnosis of diabetes for children. Blood 09/13/2024 6:40 AM CDT 09/13/2024 6:41 AM CDT Narrative [facility] - 09/14/2024 2:34 AM CDT FASTING:YES FASTING: YES [facility] LAB BLOOD ORDERABLES Final Result Performing Organization Address City/[facility]/ZIP Co de Phone Number [facility] [address] [place] [address] * (ABNORMAL) Lipid panel (09/13/2024 6:40 AM CDT) Cholesterol 141 <200 mg/dL [facility] HDL 41(L) > OR = 50 mg/dL [facility] Triglycerides 106 <150 mg/dL [facility] LDL 80 mg/dL (calc) [facility] Comment: Reference range: <100 Desirable range <100 mg/dL for primary prevention; <70 mg/dL for patients with CHD or diabetic patients with > or = 2 CHD risk factors. LDL-C is now calculated using the Reggie calculation, which is a validated novel method providing better accuracy than the Friedewald equation in the estimation of LDL-C. Taj BERMUDEZ et al. DASIA. 2013;310(19): 2340-8732 (http://[employer]/faq/VFP415) Chol/HDL ratio 3.4 <5.0 (calc) [facility] Non-HDL, (LDL+VLDL) 100 <130 mg/dL (calc) [facility] Comment: For patients with diabetes plus 1 major ASCVD risk factor, treating to a non-HDL-C goal of <100 mg/dL (LDL-C of <70 mg/dL) is considered a therapeutic option. Blood 09/13/2024 6:40 AM CDT 09/13/2024 6:41 AM CDT Narrative [facility] - 09/14/2024 2:34 AM CDT FASTING:YES FASTING: YES [facility] LAB BLOOD ORDERABLES Final Result [facility] [address] [place] [address] * (ABNORMAL) Comprehensive metabolic panel (09/13/2024 6:40 AM CDT) [facility] Glucose 101(H) 65 - 99 mg/dL [facility] Comment: Fasting reference interval For someone without known diabetes, a glucose value between 100 and 125 mg/dL is consistent with prediabetes and should be confirmed with a follow-up test. BUN 20 7 - 25 mg/dL [facility] Creatinine 0.63 0.50 - 1.05 mg/dL [facility] eGFR 98 > OR = 60 mL/min/1.7 3m2 [facility] BUN/creat ratio SEE NOTE: 6 - 22 (calc) [facility] Comment: Not Reported: BUN and Creatinine are within reference range. Sodium 142 135 - 146 mmol/L [facility] Potassium, pl 4.3 3.5 - 5.3 mmol/L [facility] Chloride 107 98 - 110 mmol/L [facility] CO2 27 20 - 32 mmol/L [facility] Calcium 9.7 8.6 - 10.4 mg/dL [facility] Protein, sr 6.6 6.1 - 8.1 g/dL [facility] Albumin 4.2 3.6 - 5.1 g/dL [facility] GLOBULIN 2.4 1.9 - 3.7 g/dL (calc) [facility] Alb/glob ratio 1.8 1.0 - 2.5 (calc) [facility] Bilirubin, total 0.4 0.2 - 1.2 mg/dL [facility] Alk phos 88 37 - 153 U/L [facility] AST 18 10 - 35 U/L [facility] ALT (SGPT) 19 6 - 29 U/L [facility] Blood 09/13/2024 6:40 AM CDT 09/13/2024 6:41 AM CDT Narrative [facility] - 09/14/2024 2:34 AM CDT FASTING:YES FASTING: YES Dulce MCDONALD LAB BLOOD ORDERABLES Final Result [facility] [address] [place] [address] * US Abdomen Complete (08/24/2024 7:54 AM CDT) Anatomical Region Laterality Modality Abdomen N/A Ultrasound 08/27/2024 3:11 PM CDT Narrative 08/27/2024 3:17 PM CDT EXAM DESCRIPTION: US ABDOMEN COMPLETE REASON FOR STUDY: d75.1, r31.9. Polycythemia and microscopic hematuria for 4 months. TECHNIQUE: Grayscale images acquired of the abdomen and recorded on PACS. Additional selected color Doppler and spectral images recorded. COMPARISON: None FINDINGS: PANCREAS: Not well evaluated due to bowel-gas. LIVER: No masses. Echotexture and echogenicity normal. Main portal vein is patent with antegrade flow. GALLBLADDER: Cholecystectomy. BILIARY: There is no intrahepatic or extrahepatic biliary ductal dilatation. Common bile duct measures 5 mm . INFERIOR VENA CAVA: Normal flow. AORTA: No aneurysm. RIGHT KIDNEY: Limited evaluation due to bowel-gas. Normal size. Normal echogenicity. There is a 2.1 x 2.2 x 2.2 cm hypoechoic lesion in the superior pole that is not definitely a simple cyst. No hydronephrosis. Measures 9.9 cm in length. LEFT KIDNEY: Normal size. Normal echogenicity. No solid mass or cyst. No hydronephrosis. Measures 10.9 cm in length. SPLEEN: Normal size. No solid masses. PERITONEAL AND PLEURAL SPACES: No ascites or effusions. OTHER: No other significant finding. IMPRESSION: 1. Bowel-gas limits evaluation of the right kidney. 2.2 cm hypoechoic lesion in the superior pole of the right kidney that is not definitely a simple cyst. In the presence of microscopic hematuria, recommend further evaluation with CT urogram. 2. Cholecystectomy. THIS IS AN ELECTRONICALLY VERIFIED FINAL REPORT 08/27/2024 3:17 PM - Electronically signed by Zeeshan Garrett M.D. AM: AM Report ID: [id number] Reading Location: [id number] Procedure Note Zeeshan Garrett MD - 08/27/2024 EXAM DESCRIPTION: US ABDOMEN COMPLETE REASON FOR STUDY: d75.1, r31.9. Polycythemia and microscopic hematuriafor 4 months. TECHNIQUE: Grayscale images acquired of the abdomen and recorded on PACS. Additional selected color Doppler and spectral images recorded. COMPARISON: None FINDINGS: PANCREAS: Not well evaluated due to bowel-gas. LIVER: No masses. Echotexture and echogenicity normal. Main portal veinis patent with antegrade flow. GALLBLADDER: Cholecystectomy. BILIARY: There is no intrahepatic or extrahepatic biliary ductaldilatation. Common bile duct measures 5 mm . INFERIOR VENA CAVA: Normal flow. AORTA: No aneurysm. RIGHT KIDNEY: Limited evaluation due to bowel-gas. Normal size. Normal echogenicity. There is a 2.1 x 2.2 x 2.2 cm hypoechoic lesion in thesuperior pole that is not definitely a simple cyst. No hydronephrosis. Measures9.9 cm in length. LEFT KIDNEY: Normal size. Normal echogenicity. No solid mass or cyst. No hydronephrosis. Measures 10.9 cm in length. SPLEEN: Normal size. No solid masses. PERITONEAL AND PLEURAL SPACES: No ascites or effusions. OTHER: No other significant finding. IMPRESSION: 1. Bowel-gas limits evaluation of the right kidney. 2.2 cm hypoechoic lesion in the superior pole of the right kidney that is not definitely a simple cyst. In the presence of microscopic hematuria,recommend further evaluation with CT urogram. 2. Cholecystectomy. THIS IS AN ELECTRONICALLY VERIFIED FINAL REPORT 08/27/2024 3:17 PM - Electronically signed by Zeeshan Garrett M.D. AM: AM Report ID: [id number] Reading Location: [place] [address] us Dago Solis DO IMG US PROCEDURES Final Resul t * CT Lung Cancer Screening (08/23/2024 6:37 AM CDT) Anatomical Region Laterality Modality Chest N/A Computed Tomogra phy 08/24/2024 11:3 2 AM CDT Narrative 08/24/2024 11:52 AM CDT EXAM DESCRIPTION: CT LUNG CANCER SCREENING REASON FOR STUDY: Screening CT of the chest in a current smoker with a 69 pack year smoking history. Additional history: None. TECHNIQUE: Low dose CT scan of the chest was performed without intravenous contrast using helical scanning technique. The exam extends from the lung apices through the lung bases. Automatic exposure control was used as a dose optimization technique. NOTE: This study was performed for the specific purposes of lung cancer screening and is not an alternative to diagnostic chest CT. RADIATION DOSE: CT dose index volume (CTDIvol) = 2.94 mGy COMPARISON: Lung cancer screening chest CT dated 08/21/2023, 04/24/2022 and 02/22/2020. FINDINGS: SMOKING RELATED LUNG DISEASE: There is pulmonary emphysema. Bilateral bronchial wall thickening/bronchiectasis. LUNG NODULES: Scattered bilateral pulmonary nodules are again seen. Previously used index right upper lobe 4 mm (series 2, image 54), right upper lobe medial margin subpleural 3 mm (series 2, image 66), right upper lobe medial margin 3 mm (series 2, image 123), right lower lobe posterior margin 2 mm (series 2, image 217), left upper lobe lateral margin 5 mm (series 2, image 102), left upper lobe posterior margin abutting the fissure 2 mm (series 2, image 131) as seen previously. Linear atelectasis in the lingula. There are scattered subpleural reticulations and mosaic attenuation on both sides. Areas of centrilobular ground-glass nodularity as noted previously. CORONARY ARTERY CALCIFICATION: Present. OTHER: Nonspecific subcentimeter mediastinal lymph nodes as seen previously. Evaluation for hilar adenopathy is limited without intravenous contrast. The heart is similar in size. Prominence of the main pulmonary artery can be seen in setting of pulmonary arterial hypertension in the proper clinical scenario. There is a small hiatal hernia. Thickening of the esophagus can be seen with esophagitis in the proper clinical scenario. Surgical clips in the gallbladder fossa. Thoracolumbar scoliotic curvature. IMPRESSION: 1. Multiple bilateral pulmonary nodules as seen on the previous chest CT dated 08/21/2023. 2. Additional findings as above. Lung-RADS category 2: Benign appearance or behavior. Recommendation: Low dose Screening CT of chest in 12 months. THIS IS AN ELECTRONICALLY VERIFIED FINAL REPORT 08/24/2024 11:52 AM - Electronically signed by Mac Russell D.O. AP: AP Report ID: [id number] Reading Location: [place] [address] Procedure Note Mac Russell, DO - 08/24/2024 EXAM DESCRIPTION: CT LUNG CANCER SCREENING REASON FOR STUDY: Screening CT of the chest in a current smoker with a69 pack year smoking history. Additional history: None. TECHNIQUE: Low dose CT scan of the chest was performed without intravenous contrast using helical scanning technique. The exam extends from the lung apices through the lung bases. Automatic exposure control was used as adose optimization technique. NOTE: This study was performed for the specific purposes of lung cancer screening and is not an alternative to diagnostic chest CT. RADIATION DOSE: CT dose index volume (CTDIvol) = 2.94 mGy COMPARISON: Lung cancer screening chest CT dated 08/21/2023, 04/24/2022nd 02/22/2020. FINDINGS: SMOKING RELATED LUNG DISEASE: There is pulmonary emphysema. Bilateral bronchial wall thickening/bronchiectasis. LUNG NODULES: Scattered bilateral pulmonary nodules are again seen. Previously used index right upper lobe 4 mm (series 2, image 54), rightupper lobe medial margin subpleural 3 mm (series 2, image 66), right upper lobe medial margin 3 mm (series 2, image 123), right lower lobe posteriormargin 2 mm (series 2, image 217), left upper lobe lateral margin 5 mm (series 2,image 102), left upper lobe posterior margin abutting the fissure 2 mm (series2, image 131) as seen previously. Linear atelectasis in the lingula. There are scattered subpleural reticulations and mosaic attenuation on both sides. Areas ofcentrilobular ground-glass nodularity as noted previously. CORONARY ARTERY CALCIFICATION: Present. OTHER: Nonspecific subcentimeter mediastinal lymph nodes as seenpreviously. Evaluation for hilar adenopathy is limited without intravenous contrast.The heart is similar in size. Prominence of the main pulmonary artery can beseen in setting of pulmonary arterial hypertension in the proper clinicalscenario. There is a small hiatal hernia. Thickening of the esophagus can be seenwith esophagitis in the proper clinical scenario. Surgical clips in the gallbladder fossa. Thoracolumbar scoliotic curvature. IMPRESSION: 1. Multiple bilateral pulmonary nodules as seen on the previous chest CT dated 08/21/2023. 2. Additional findings as above. Lung-RADS category 2: Benign appearance or behavior. Recommendation: Low dose Screening CT of chest in 12 months. THIS IS AN ELECTRONICALLY VERIFIED FINAL REPORT 08/24/2024 11:52 AM - Electronically signed by Mac Russell D.O. AP: BENOIT Report ID: [id number] Reading Location: [place] [address] us Dulce MCDONALD IM CT PROCEDURES Final Re sult * Screening Mammogram Bilateral W Emerson (04/28/2024 9:02 AM DRYWALL FINISHING FOREMAN) Anatomical Region Laterality Modality Breast Bilateral Mammography Impressions 04/28/2024 12:02 PM DRYWALL FINISHING FOREMAN BI-RADS ATLAS category (overall): 1 - Negative There is no mammographic evidence of malignancy. A 1 year screening mammogram is recommended. The patient has been or will be contacted. We recommend annual screening mammography for women at average risk of breast cancer beginning at age 40, based on guidelines of the [employer] [employer] (ACR Practice Parameter for the Performance of Screening and Diagnostic Mammography) and [place] [employer]. For women with and elevated risk of breast cancer, please refer to the ACR Practice Parameter for specific screening recommendations. The patient will be entered into a reminder system with a target due date of 1 year for her next screening exam. Narrative 04/28/2024 12:02 PM DRYWALL FINISHING FOREMAN Screening Mammogram Bilateral W Emerson: 04/28/24 The study was acquired using full field digital technology and interpreted from soft copy. 2D digital mammographic views, as well as 3D digital tomosynthesis were performed in the CC and MLO projections. CLINICAL: Breast cancer screening by mammogram. No relevant medical history has been documented for this patient. No known family history of breast cancer. COMPARISONS: 04/23/2023 Screening Mammogram Bilateral W Emerson 04/09/2022 Screening Mammogram Bilateral W Emerson 02/22/2020 Screening Mammogram Bilateral W Emerson 07/30/2018 Screening Mammogram Bilateral W Emerson 07/09/2017 Screening Mammogram Bilateral W Emerson BREAST TISSUE: The breasts are almost entirely fatty. FINDINGS: No suspicious masses, suspicious calcifications, or other suspicious findings are seen within either breast. There has been no suspicious change. Dulce MCDONALD G MAMMO PROCEDURES Final Result * DIABETES EYE EXAM (05/07/2020) Historical Provider [facility] MAINTENANCE Edited Result - Final * COLONOSCOPY (07/03/2017) Colonoscopy Abnormal Comment:hyperplastic sigmoid polyp -- Dr. Maciel us Historical Provider HEALTH MAINTENANCE Final Result * ThinPrep Gynecologic Pap Test (Image-guided), Liquid-based Preparation (04/24/2017 11:40 AM DRYWALL FINISHING FOREMAN) Pathologist [facility] CLINICAL INFORMATION [facility] HISTORICAL RESULTS Comment:Information not prov ided LMP: 2008 [facility] HISTORICAL RESULTS PREV. PAP: [facility] - [facility] HISTORICAL RESULTS Comment:INFORMATION NOT PROV IDED PREV. BX: [facility] HISTORICAL RESULTS Comment:INFORMATION NOT PROV IDED SOURCE: [facility] - EC HISTORICAL RESULTS Comment:Cervix, Endocervix STATEMENT OF ADEQUACY: [facility] - [facility] HISTORICAL RESULTS Comment: Satisfactory for evaluation. Endocervical/transformation zone component absent. INTERPRETATION/RESU LT: [facility] HISTORICAL RESULTS Comment:Negative for intraep ithelial lesion or malignancy. COMMENT: [facility] - [facility] HISTORICAL RESULTS Comment: This Pap test has been evaluated with computer assisted technology. GOLD RECLAIMER: [facility] EC HISTORICAL RESULTS Comment: LMT, CT(ASCP) CT screening location: [place] [address] [place] [address] REVIEW GOLD RECLAIMER: [facility] HISTORICAL RESULTS Comment: ABC, CT(ASCP) CT screening location: [place] [address] [address] DHARMESH Morales [facility] 04/24/2017 11:4 0 AM DRYWALL FINISHING FOREMAN 05/11/2017 3:05 PM DRYWALL FINISHING FOREMAN Narrative [facility] HISTORICAL RESULTS - 05/11/2017 2:36 PM DRYWALL FINISHING FOREMAN FASTING: UNKNOWN PERFORMING LAB: [place] [place] [address] [facility] [id number] Zay Rivera MD us Historical Provider LAB PATHOLOGY ORDERABLES Final Result [facility] - EC HISTORICAL RESULTS from Last 3 Months or Most Recently Relevant to Health Maintenance Insurance BLUE ACCESS OOS MEDICARE BLUE ACCESS OOS BLUE ACCESS OOS Care Teams Websphere Portal Developer Relationship Specialty Start Date End Date Dulce Capellan PA [address] [facility] [address] [place], [place] [id number] PCP - General 07/30/18
--- OUTSIDE RECORDS SUMMARY | 2024-10-17 16:35 | XMS_ITS | Encounter Summary ---
Author Organization [facility] Healthcare Address [address] [place] [address] Care Team Providers Care Floor Care Technician Name Role Phone Dulce Capellan Primary Care Provider +1- [phone] Encounter Details Date Type Department Care Team (Late st Contact Info) Description 09/01/2024 Results Follow-Up [facility] Family Medicine [address] [place] [address] Dulce Capellan PA [address] [place] [address] Social History Tobacco Use Types Packs/Day Years Used Date Smoking Tobacco: Every Day Cigarettes 2 40 Smokeless Tobacco: Never Alcohol Use Standard Drinks/Week Comments Never 0 (1 standard drink = 0.6 oz pur e alcohol) AUDIT-C Answer Date Recorded Q1: How often do you have a drink containing alc ohol? 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 Gender Identity Female 10/25/2019 7:49 AM CDT Sexual Orientation Straight 10/25/2019 7: 49 AM CDT Occupation Industry Job Start Date Job End Date [facility] [employer] Not on jackson e Not on file Not on file documented as of this encounter Plan of Treatment Not on file documented as of this encounter Visit Diagnoses Not on filedocumented in this encounter Care Teams Floor Care Technician Relationship Specialty Start Date End Date Dulce Capellan PA [address] [facility] [address] [place] [address] PCP - General 07/30/18 documented as of this encounter
--- OUTSIDE RECORDS SUMMARY | 2024-10-17 16:35 | XMS_ITS | Encounter Summary ---
Author Organization [facility] Healthcare Address [address] [place] [address] Care Team Providers Care Ceramic Capacitor Processor Name Role Phone Dulce Capellan Primary Care Provider +1- [phone] Encounter Details Date Type Department Care Team (Late st Contact Info) Description 09/14/2024 Results Follow-Up [facility] Family Medicine 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 [address] [place] [address] PCP - General 07/30/18 documented as of this encounter
--- OUTSIDE RECORDS SUMMARY | 2024-10-17 16:35 | XMS_ITS | Encounter Summary ---
Author Organization [facility] Facility Care Team Providers Care Triage Register Nurse Name Role Phone Dulce Capellan Primary Care Provider +1- [phone] Encounter Details Date Type Department Care Team (Latest Contact Info) Description 07/03/2017 Orders Only [facility] CLINCONV Provider, MD Tessa [address] [place] [address] Social History Tobacco Use Types Packs/Day Years Used Date Smoking Tobacco: Never Assessed Comments Unknown Sex and Gender Information Value Date Recorded Sex Assigned at Not on file Legal Sex Female 9:01 PM ASSOCIATE JUSTICE Gender Identity Female 10/25/2019 7:49 AM CDT Sexual Orientation Straight 10/25/2019 7: 49 AM CDT documented as of this encounter Plan of Treatment Not on file documented as of this encounter Procedures Procedure Name Priority Date/Time Associated Diagnosis Comments COLONOSCOPY - SCAN 07/03/2017 12 :00 AM ASSOCIATE JUSTICE documented in this encounter Results * COLONOSCOPY - SCAN (07/03/2017 12:00 AM ASSOCIATE JUSTICE) Narrative 07/03/2017 12:00 AM ASSOCIATE JUSTICE Ordered by an unspecified provider. us Historical Provider Final Res ult documented in this encounter Visit Diagnoses Not on filedocumented in this encounter Care Teams Triage Register Nurse Relationship Specialty Start Date End Date Dulce Capellan PA [address] [place] [address] PCP - General 07/30/18 documented as of this encounter
--- OUTSIDE RECORDS SUMMARY | 2024-10-17 16:35 | XMS_ITS | Clinical Summary ---
Author Organization [facility] [address] [facility] Address [address] [place] [address] Care Team Providers Care Supervisor Power Reactor Name Role Phone Dulce Capellan Primary Care Provider [phone]- [phone] Allergies No known active allergies Medications coenzyme Q10 200 mg capsule Take 1 capsule (200 mg total) by mouth daily Active cholecalciferol (VITAMIN D-3) 5,000 unit tablet Ac tive ginkgo biloba 40 mg tablet Take by mouth Active iqeeip-cjqn-yzbf- levomef-silic 10-50-500-0.5 mg capsule Take by mouth [...] needed Assessment & Plan (06/13/2024 12:03 AM FASHION SUPERVISOR): Patient with COPD. Continue with Breztri Strongly encouraged complete smoking cessation. Low-dose CT [...] cessation Assessment & Plan (06/13/2024 12:04 AM FASHION SUPERVISOR): Patient with persistent elevation of her hemoglobin hematocrit. Recommend referral to Hematology for further assistance in evaluating underlying cause. Discussed options and will refer to Dr. Solis or provider 1st available in the office. Will await their recommendation Assessment & Plan (05/05/2024 8:53 AM FASHION SUPERVISOR): This is a significant, separately identifiable problem [...] 09/27/2023 Assessment & Plan (05/05/2024 8:52 AM FASHION SUPERVISOR): Check DEXA Assessment & Plan (09/27/2023 11:12 PM CDT): Check DEXA BMI 26.0-26.9,adult 03/30/2023 Assessment & Plan (09/27/2024 8:03 AM CDT): Discussed the patient's BMI. The BMI is above average. BMI management plan is completed. BMI Follow-up includes: nutrition counseling, exercise counseling and education provided. Assessment & Plan (06/07/2024 9:15 AM FASHION SUPERVISOR): Discussed the patient's BMI. The BMI is above average. BMI management plan is completed. BMI Follow-up includes: nutrition counseling, exercise counseling and education provided. Assessment & Plan (05/05/2024 7:38 AM FASHION SUPERVISOR): Weight/BMI is in healthy range. Continue healthy lifestyle to maintain. Assessment & Plan (04/19/2024 11:46 AM FASHION SUPERVISOR): Weight/BMI is in healthy range. Continue healthy [...] smoking Assessment & Plan (06/13/2024 12:03 AM FASHION SUPERVISOR): Encouraged smoking cessation. Discussed 3 minutes. Reviewed options for assistance with cessation. Reviewed fdc sequela associated with smoking. Pt is considering cessationa but declines assistance at this time but may contact the office at anytime for further help as they desire. Assessment & Plan (05/05/2024 8:52 AM FASHION SUPERVISOR): Encouraged smoking cessation. Discussed 3 minutes. Reviewed options for assistance with cessation. Reviewed moth exterminator sequela associated with smoking. Pt declines assistance at this time but may contact the office at anytime for further help as they desire. Will order low-dose CT for August of 2024 Assessment & Plan (09/27/2023 11:10 PM CDT): Encouraged smoking cessation. Discussed 3 minutes. Reviewed options for assistance with cessation. Reviewed fdc sequela associated with smoking. Pt declines assistance at this time but may contact the office at anytime for further help as they desire. Assessment & Plan (03/30/2023 8:15 AM CDT): Encouraged smoking cessation. Discussed 3 minutes. Reviewed options for assistance with cessation. Reviewed fdc sequela associated with smoking. Pt declines assistance at this time but may contact the office at anytime for further help as they desire. Patient is not quite ready to stop. She does have Chantix home for when she is ready Low-dose CT screening will be due after April 27 at [facility] Assessment & Plan (10/23/2022 10:54 PM CDT): Encouraged smoking cessation. Discussed 3 minutes. Reviewed options for assistance with cessation. Reviewed moth exterminator sequela associated with smoking. Pt declines assistance at this time but may contact the office at anytime for further help as they desire. Assessment & Plan (03/29/2022 12:40 PM CDT): Encouraged smoking cessation. Discussed 3 minutes. Reviewed options for assistance with cessation. Reviewed moth exterminator sequela associated with smoking. Pt declines assistance at this time but may contact the office at anytime for further help as they desire. Due for low-dose CT. Will order at [facility] Assessment & Plan (09/21/2021 8:51 PM CDT): Encouraged smoking cessation. Discussed 3 minutes. Reviewed options for assistance with cessation. Reviewed fdc sequela associated with smoking. Pt declines assistance at this time but may contact the office at anytime for further help as they desire. Assessment & Plan (11/30/2020 9:10 AM CDT): Encouraged smoking cessation. Discussed 3 minutes. Reviewed options for assistance with cessation. Reviewed fdc sequela associated with smoking. Pt declines assistance at this time but may contact the office at anytime for further help as they desire. Assessment & Plan (07/17/2020 1:11 PM FASHION SUPERVISOR): Encouraged smoking cessation. Discussed 3 minutes. Reviewed options for assistance with cessation. Reviewed fdc sequela associated with smoking. Pt declines assistance at this time but may contact the office at anytime for further help as they desire. Will consider Chantix if not $700 like it was last year. Reviewed risks, benefit, alternatives, side effects and proper use. Pulmonary nodules/lesions, multiple 02/24/2020 Overview (07/17/2020): Due to repeat LDCT in 02/2021 Assessment & Plan (07/17/2020 1:08 PM FASHION SUPERVISOR): Needs repeat LDCT in 02/2021 Assessment & Plan (02/25/2020 9:49 AM CDT): 02/22/2020 LDCT - 4 pulmonary nodules, benign appearing. Repeat in 1 year (02/2021) Renal lesion 02/24/2020 Overview (02/24/2020): LDCT -- incidental finding Assessment & Plan (02/25/2020 9:50 AM CDT): Incidental right kidney lesion. Needs additional follow-up with MRI. She desires to have it repeated at [facility]. Encounter for screening for malignant neoplasm [...] smoking Assessment & Plan (05/05/2024 8:46 AM FASHION SUPERVISOR): Bp is stable/in acceptable range for any [...] of continued A1c control to minimize the moth exterminator effects of diabetes. Bring accuchecks to office [...] 5mg Assessment & Plan (07/17/2020 1:09 PM FASHION SUPERVISOR): Bp is elevated today. She smoked just [...] 01/16/2019 Assessment & Plan (05/05/2024 8:54 AM FASHION SUPERVISOR): Vitamin-D level is getting to the upper [...] supplement Assessment & Plan (07/17/2020 1:09 PM FASHION SUPERVISOR): supplement Assessment & Plan (10/12/2019 11:43 AM CDT): Continue supplement Assessment & Plan (01/22/2019 2:22 PM CDT): supplement OAB (overactive bladder) 01/16/2019 Assessment & Plan (10/08/2024 3:22 PM CDT): Symptoms are stable with Detrol LA 4 mg daily Assessment & Plan (05/05/2024 8:46 AM FASHION SUPERVISOR): Stable with the Detrol. Continue same dose Assessment & Plan (03/30/2023 8:14 AM CDT): Continue Detrol. Symptoms are stable Assessment & Plan (10/23/2022 10:54 PM CDT): Patient has noticed some improvement with the Detrol LA 4 mg. Still having leakage. Discussed transitioning to similar medicine in same class verses Caterinaiq. She will check with her insurance to [...] vesicare Assessment & Plan (07/17/2020 1:12 PM FASHION SUPERVISOR): This is a significant, separately identifiable problem [...] intake Assessment & Plan (05/05/2024 8:45 AM FASHION SUPERVISOR): Stressed importance of continued A1c control to minimize the moth exterminator effects of diabetes. Bring accuchecks to office when instructed to do so. Check A1c about every 3-6 months. Take medication as prescribed. Get annual eye exam. Encouraged FARHAN/Statin if able to tolerate. Encouraged weight control and encouraged diabetic diet and exercise. Continue with diet control Assessment & Plan (09/27/2023 11:10 PM CDT): Stressed importance of continued A1c control to minimize the moth exterminator effects of diabetes. Bring accuchecks to office [...] of continued A1c control to minimize the fdc effects of diabetes. Bring accuchecks to office when instructed to do so. Check A1c about every 3-6 months. Take medication as prescribed. Get annual eye exam. Encouraged FARHAN/Statin if able to tolerate. Encouraged weight control and encouraged diabetic diet and exercise. Continue with diet control Assessment & Plan (10/23/2022 10:52 PM CDT): Stressed importance of continued A1c control to minimize the moth exterminator effects of diabetes. Bring accuchecks to office when instructed to do so. Check A1c about every 3-6 months. Take medication as prescribed. Get annual eye exam. Encouraged FARHAN/Statin if able to tolerate. Encouraged weight control and encouraged diabetic diet and exercise. She is diet controlled Assessment & Plan (03/29/2022 12:39 PM CDT): Stressed importance of continued A1c control to minimize the moth exterminator effects of diabetes. Bring accuchecks to office [...] of continued A1c control to minimize the moth exterminator effects of diabetes. Bring accuchecks to office when instructed to do so. Check A1c about every 3-6 months. Take medication as prescribed. Get annual eye exam. Encouraged FARHAN/Statin if able to tolerate. Encouraged weight control and encouraged diabetic diet and exercise. Continue with diet control Assessment & Plan (07/17/2020 1:11 PM FASHION SUPERVISOR): Stressed importance of continued A1c control to minimize the fdc effects of diabetes. Bring accuchecks to office [...] smoking Assessment & Plan (05/05/2024 8:45 AM FASHION SUPERVISOR): Encouraged patient to follow low fat/low chol [...] statin Assessment & Plan (07/17/2020 1:11 PM FASHION SUPERVISOR): Encouraged patient to follow fat/low chol diet [...] attention Assessment & Plan (05/05/2024 8:51 AM FASHION SUPERVISOR): Continue levothyroxine. TSH is slightly elevated. She [...] levothyroxine Assessment & Plan (07/17/2020 1:11 PM FASHION SUPERVISOR): Continue levothyroxine Assessment & Plan (10/12/2019 11:43 AM CDT): Stable with levothyroxine Assessment & Plan (01/22/2019 2:23 PM CDT): Check labs. Continue levothyroxine Resolved Problems Problem Noted Date Diagnosed Date Resolved Date Arthralgia 05/05/2024 06/13/2024 Assessment & Plan (05/05/2024 8:53 AM FASHION SUPERVISOR): This is a significant, separately identifiable problem that was evaluated and managed on the same day as the wellness exam Patient has noticing increased fatigue, generalized body aches and just feeling a little weaker. Recommend MADDISON, CRP and sed rate Annual physical exam 05/05/2024 024 Assessment & Plan (05/05/2024 8:53 AM FASHION SUPERVISOR): Encouraged healthy lifestyle, good nutrition and exercise. Encouraged Calcium and Vitamin D and weight bearing exercise for bone health. Reviewed immunizations Reviewed age appropirate screenings. Sialodocholithiasis 04/28/2024 06/13/20 24 Acute parotitis 04/28/2024 06/13/2024 Assessment & Plan (05/05/2024 8:51 AM FASHION SUPERVISOR): Symptoms resolved with passing of the stone and completion of the antibiotic. Continue to monitor and if symptoms would return she needs to be seen immediately Enlarged parotid gland 04/19/202405/05 Assessment & Plan (04/19/2024 7:52 PM FASHION SUPERVISOR): Patient presents with a swollen right parotid [...] 05/05/2024 Assessment & Plan (04/19/2024 7:50 PM FASHION SUPERVISOR): Patient is congested and states she is [...] 06/13/2024 Assessment & Plan (05/05/2024 8:46 AM FASHION SUPERVISOR): Patient with known COPD. Strongly encouraged complete [...] Contact dermatitis due to plants, except food 02/15/20 21 05/05/2024 Assessment & Plan (02/14/2021 6:47 PM CDT): Advised f/u in the next week if not improving, sooner if worsening Essential hypertension 11/30/202011/30 BMI 29.0-29.9,adult 07/17/2020 02/15/20 21 Assessment & Plan (11/30/2020 7:15 AM CDT): Weight/BMI is in healthy range. Continue healthy lifestyle to maintain. Assessment & Plan (07/17/2020 9:26 AM FASHION SUPERVISOR): Weight/BMI is in healthy range. Continue healthy lifestyle to maintain. Annual physical exam 04/15/2020 021 Assessment & Plan (07/17/2020 1:11 PM FASHION SUPERVISOR): Encouraged healthy lifestyle, good nutrition and exercise. [...] Reviewed options for assistance with cessation. Reviewed moth exterminator sequela associated with smoking. Pt declines assistance [...] Continue Crestor Adjustment disorder 04/23/2017 05/05/20 24 Encounters Date Type Department Care Team Description 10/06/2024 8:25 AM CDT - 10/06/2024 11:59 PM CDT Hospital Encounter [facility] Bldg 1 [facility] [address] [facility] [address] [place] [address] Menopause Discharge Disposition: Discharge to home or self care 10/06/2024 Results Follow-Up [address] [place] [address] Dulce Capellan PA 09/27/2024 8:00 AM CDT Office Visit [address] [place] [address] Dulce Capellan PA Type 2 diabetes mellitus without complication, without long-term current use of insulin (HCC) (Primary Dx); Hyperlipidemia associated with type 2 diabetes mellitus (HCC); Hypertension associated with diabetes (HCC); Polycythemia; Acquired hypothyroidism; Other emphysema (HCC); Cigarette smoker; Primary osteoarthritis of both hands; OAB (overactive bladder); BMI 26.0-26.9,adult 09/14/2024 Results Follow-Up [place] [id number] [facility] [address] [place] [address] Dulce Capellan PA 09/01/2024 Results Follow-Up [address] [place] [address] Dulce Capellan PA 08/24/2024 7:10 AM CDT - 08/24/2024 11:59 PM CDT Hospital Encounter [facility] Ultrasound [address] [place] [address] Discharge Disposition: Discharge to home or self care 08/23/2024 6:23 AM CDT - 08/23/2024 11:59 PM CDT Hospital Encounter [facility] [address] [place] [address] Cigarette smoker Discharge Disposition: Discharge to home or self care 08/18/2024 Orders Only [facility] [address] [facility] [address] [place] [address] Dulce Capellan PA Hyperlipidemia associated with type 2 diabetes mellitus (HCC) (Primary Dx); Hypertension associated with diabetes (HCC); Acquired hypothyroidism; Type 2 diabetes mellitus without complication, without long-term current use of insulin (HCC) from Last 3 Months Immunizations Immunization Administration Dates Next Due Influenza, Quadrivalent, Rec ombinant, Egg Free, Preservative Free, Intramuscular 04/07/2020 Influenza, Quadrivalent, Spl it, Preservative Free, Intramuscular 03/25/2022 Influenza, Trivalent, IM (MDV) 04/06/2013 Influenza, Trivalent, Preser vative Free, Intramuscular 04/02/2015 Influenza, Unspecified 06/15/2023(Deferr ed: Patient Refused),03/30/2023(Deferred: Patient Refused) Pneumococcal Conjugate Pcv20 06/15/2023(Deferred : Patient Refused) Tdap 03/25/2022 ZOSTER Recombinant 09/08/2020,04/07/2020 Surgical History Surgery Date Site/Laterality Comments CHOLECYSTECTOMY 06/15/1977 - 06/14/1978 APPENDECTOMY 06/15/1965 - 06/14/1966 BREAST BIOPSY Right CATARACT EXTRACTION Medical History Medical History Date Comments Hypertension Cataracts, bilateral Salivary stone Family History * Patient is adopted Medical History Relation Name Comments No Known Problems Father No Known Problems Mother Relation Name Status Comments Father Mother Social History Tobacco Use Types Packs/Day Years [...] on file Legal Sex Female 9:01 PM FASHION SUPERVISOR Gender Identity Female 10/25/2019 7:49 AM CDT Sexual Orientation Straight 10/25/2019 7: 49 AM CDT Occupation Industry Job Start Date Job End Date [employer] Not on jackson e Not on file Not on file Obstetrics History Para Term AB IAB SAB Ectopic Multiple Livin g Live Births 1 1 Date Outcome GA Total Labor Labor//3rd Weight Sex Type Anes PTL Maylin A1 A5 Name Clin Term Last Filed Vital Signs Vital Sign Reading Time Taken Comments Blood Pressure 126/84 09/27/2024 7:59 AM CDT Pulse 86 09/27/2024 7:59 AM CDT Temperature 36.4 C (97.5 F) 09/27/2024 7:59 AM CDT Respiratory Rate 18 04/28/2024 1:04 PM FASHION SUPERVISOR Oxygen Saturation 99% 09/27/2024 7:59 AM CDT Inhaled Oxygen Concentration - - Weight 73.6 kg (162 lb 3.2 oz) 09/27/2024 7:59 A M CDT Height 167.6 cm (5' 6 ) 09/27/2024 7:59 AM CDT Body Mass Index 26.18 09/27/2024 7:59 AM CDT Plan of Treatment Health Maintenance Due Date Last Done Comments Hepatitis C Screening 1955 Hepatitis B Screening 12/12/1975 Pneumococcal vaccine 65+ (1 of 2 - PCV) 1976 Dilated Eye Exam 05/07/2021 05/07/2020 Foot Exam 07/17/2021 07/17/2020 Covid-19 Vaccine (3 - 2023-2 5 season) 2024 01/31/2021, 01/06/2021 Influenza Vaccine (Season Ended) 2025 03/25/2022, 04/07/2020, 04/02/2015, Additional history exists Hemoglobin A1C 03/15/2025 09/13/2024, 1112/2023, 09/01/2023, Additional history exists Breast Cancer Screening-Mammogram 04/28/2025 04/28/2024, 04/23/2023, 04/09/2022, Additional history exists Well Visit 65+ 05/05/2025 05/05/2024, 03/15, 03/25/2022, Additional history exists Lung Cancer Screening 08/24/2025 08/23/2024 , 08/21/2023, 04/24/2022, Additional history exists Albumin Creatinine Ratio, Urine 09/13/2025 09/13/2024, 09/01/2023, 10/01/2022 Lipid Panel 09/13/2025 09/13/2024, 12/2023, 09/01/2023, Additional history exists eGFR 09/13/2025 09/13/2024, 12/2023, 09/01/2023, Additional history exists Depression Screening 09/27/2025 09/27/2024, 06/07/2024, 05/05/2024, Additional history exists Fall Risk Assessment 09/27/2025 09/27/2024, 06/07/2024, 11/23/2023, Additional history exists Osteoporosis Screening-Bone Density Scan 10/06/2026 10/06/2024, 08/16/2013 Colon Cancer Screening-Colonoscopy 07/03/2027 07/03/2017 DTaP/Tdap/Td Vaccine (2 - Td or Tdap) 03/25/2032 03/25/2022 Cervical Cancer Screening Discontinued 04/24/2017, 03/2017 Colon Cancer Screening-CT Colonography Discontinued 07/03/2017 Colon Cancer Screening-DNA Stool Discontinued 07/03/19 18 Colon Cancer Screening-FIT Discontinued 07/03/2017 Colon Cancer Screening-Sigmoidoscopy Discontinued 07/03/2017 Zoster Vaccine Completed 09/08/2020, 04/07/2020 Procedures Procedure Name Priority Date/Time Associated Diagnosis [...] Read Routine (OP Routine) 04/28/2024 9:02 AM FASHION SUPERVISOR Breast cancer screening by mammogram HM DIABETES EYE EXAM Routine 05/07/2020 HM COLONOSCOPY Routine 07/03/2017 THINPREP SOLUTION MIXER PAP (IMAGE GUIDED) LIQUID-BASED PREP Routine 04/24/2017 11:40 AM FASHION SUPERVISOR from Last 3 Months or Most Recently [...] old F with given history of: menopause [employer]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 MF: ANDRE Report ID: [id number] Reading Location: [id number] Procedure Note Shadi Ramírez MD - 10/06/2024 EXAM DESCRIPTION: DEXA AXIAL SKELETON BONE DENSITY 1 OR MORE SITES REASON FOR STUDY: 68 y/o year old F with given history of: menopause [employer] Rol[employer] Supervisor/Model: Sulia A (S/N [id number]) Facility LSC value of 0.022 for the [...] see below follow up recommendations. Medical evaluation forsecondary causes of low bone mineral density may [...] Shadi Ramírez M.D. MF: ANDRE Report ID: [id number] Reading Location: [place] [address] Dulce MCDONALD IM DXA PROCEDURES Final R esult * Albumin Creatinine Ratio, Urine (09/13/2024 6:43 AM CDT) Pathologist [facility] Creatinine, ur 52 20 - 275 mg/dL [...] Dulce MCDONALD LAB URINE ORDERABLES Final Result Performing Organization Address [facility] de Phone Number [facility] [address] [place] [address] * TSH (09/13/2024 6:40 AM CDT) Pathologist [facility] TSH 4.18 0.40 - 4.50 mIU/L [facility] Blood 09/13/2024 6:40 AM CDT 09/13/2024 6:41 AM CDT Narrative [facility] - 09/14/2024 2:34 AM CDT FASTING:YES FASTING: YES Dulce MCDONALD LAB BLOOD ORDERABLES Final Result Performing Organization Address [facility] de Phone Number QUEST [facility] [address] [place] [address] * (ABNORMAL) Hemoglobin A1c (09/13/2024 6:40 AM CDT) Pathologist [facility] Hgb A1C 6.2(H) <5.7 % of total Hgb [facility] Comment: For someone without known diabetes, [...] LAB BLOOD ORDERABLES Final Result [facility] [address] [place] [address] * (ABNORMAL) Lipid panel (09/13/2024 6:40 AM [...] LDL-C. Taj BERMUDEZ et al. DASIA. 2013;310(19): 3560-8466 (http://education.[employer]/faq/OBF268) Chol/HDL ratio 3.4 <5.0 (calc) [facility] [...] MCDONALD LAB BLOOD ORDERABLES Final Result [facility] [address] [address] * (ABNORMAL) Comprehensive metabolic panel (09/13/2024 6:40 AM CDT) [facility] Glucose 101(H) 65 - 99 mg/dL [facility] [...] 09/14/2024 2:34 AM CDT FASTING:YES FASTING: YES us Dulce MCDONALD LAB BLOOD ORDERABLES Final Result [facility] [address] [id number] * US Abdomen Complete (08/24/2024 7:54 AM [...] Zeeshan Garrett M.D. AM: AM Report ID: [id number] Reading Location: [id number] Procedure Note Zeeshan Garrett MD - 08/27/2024 [...] Zeeshan Garrett M.D. AM: AM Report ID: [id number] Reading Location: [id number] us Dago Solis DO IMG US PROCEDURES [...] Mac Russell D.O. AP: AP Report ID: [id number] Reading Location: [place] [address] Procedure Note Mac Russell, DO - 08/24/2024 [...] Mac Russell D.O. AP: AP Report ID: [id number] Reading Location: [place] [address] PROCEDURES Final Re sult * Screening Mammogram Bilateral W Emerson (04/28/2024 9:02 AM FASHION SUPERVISOR) Anatomical Region Laterality Modality Breast Bilateral Mammography Impressions 04/28/2024 12:02 PM FASHION SUPERVISOR BI-RADS ATLAS category (overall): 1 - Negative There is no mammographic evidence of malignancy. A 1 year screening mammogram is recommended. The patient has been or will be contacted. We recommend annual screening mammography for women at average risk of breast cancer beginning at age 40, based on guidelines of the [employer] (ACR Practice Parameter for the Performance of Screening and Diagnostic Mammography) and [employer]. For women with and elevated risk of breast cancer, please refer to the ACR Practice Parameter for specific screening recommendations. The patient will be entered into a reminder system with a target due date of 1 year for her next screening exam. Narrative 04/28/2024 12:02 PM FASHION SUPERVISOR Screening Mammogram Bilateral W Emerson: 04/28/24 The [...] has been no suspicious change. Dulce MCDONALD IMG MAMMO PROCEDURES Final Result * DIABETES EYE EXAM (05/07/2020) [facility] Provider [facility] Edited Result - Final * COLONOSCOPY (07/03/2017) Colonoscopy Abnormal Comment:hyperplastic sigmoid polyp -- Dr. Maciel [facility] Provider [facility] Final Result * ThinPrep Gynecologic Pap Test (Image-guided), Liquid-based Preparation (04/24/2017 11:40 AM FASHION SUPERVISOR) CLINICAL INFORMATION [facility] RES[facility] Comment:Information not prov ided LMP: 2008 [facility] RES[facility] PREV. PAP: [facility] HISTORICAL RESULTS Comment:INFORMATION NOT PROV IDED PREV. BX: [facility] Comment:INFORMATION NOT PROV IDED SOURCE: [facility] HISTORICAL RESULTS Comment:Cervix, Endocervix STATEMENT OF ADEQUACY: [facility] HISTORICAL RESULTS Comment: Satisfactory for evaluation. Endocervical/transformation zone component absent. INTERPRETATION/RESU LT: [facility] Comment:Negative for intraep ithelial lesion or malignancy. COMMENT: [facility] HISTORICAL RESULTS Comment: This Pap test has been evaluated with computer assisted technology. BACK PADDER: [facility] HISTORICAL RESULTS Comment: LMT, CT(ASCP) CT screening location: [place] [address] [address] [address] REVIEW BACK PADDER: [facility] HISTORICAL RESULTS Comment: ABC, CT(ASCP) CT screening location: [place] [address] [address] DHARMESH Morales [address] 04/24/2017 11:4 0 AM FASHION SUPERVISOR 05/11/2017 3:05 PM FASHION SUPERVISOR Narrative MATIAS LY HISTORICAL RESULTS - 05/11/2017 2:36 PM FASHION SUPERVISOR FASTING: UNKNOWN PERFORMING LAB: [place], [facility] [address] [facility] [phone] Zay Rivera MD Historical Provider LAB PATHOLOGY ORDERABLES Final Result [facility] Batool [facility] HISTORICAL RESULTS from Last 3 Months or Most Recently Relevant to Health Maintenance Insurance Seeonic OOS MEDICARE Seeonic OOS Seeonic OOS Care Teams Supervisor Power Reactor Relationship Specialty Start Date End Date Dulce Capellan PA [address] [place] [address] PCP - General 07/30/18
--- OUTSIDE RECORDS SUMMARY | 2024-10-17 16:35 | XMS_ITS | Encounter Summary ---
Author Organization [facility] Facility Care Team Providers Care Aquatic Laborer Name Role Phone Dulce Capellan Primary Care Provider [phone] Encounter Details Date Type Department Care Team (Latest Contact Info) Description 06/25/2017 Orders Only [facility] CLINCONV Provider, MD Tessa [address] [place] [id number] Social History Tobacco Use Types Packs/Day Years Used Date Smoking Tobacco: Never Assessed Comments Unknown Sex and Gender Information Value Date Recorded Sex Assigned at Not on file Legal Sex Female 9:01 PM REWIND OPERATOR Gender Identity Female 10/25/2019 7:49 AM CDT Sexual Orientation Straight 10/25/2019 7: 49 AM CDT documented as of this encounter Plan of Treatment Not on file documented as of this encounter Procedures Procedure Name Priority Date/Time Associated Diagnosis Comments COLONOSCOPY - SCAN 06/25/2017 12 :00 AM REWIND OPERATOR documented in this encounter Results * COLONOSCOPY - SCAN (06/25/2017 12:00 AM REWIND OPERATOR) Narrative 06/25/2017 12:00 AM REWIND OPERATOR Ordered by an unspecified provider. us Historical Provider Final Res ult documented in this encounter Visit Diagnoses Not on filedocumented in this encounter Care Teams Aquatic Laborer Relationship Specialty Start Date End Date Dulce Capellan PA [address] [place] [address] PCP - General 07/30/18 documented as of this encounter
--- OUTSIDE RECORDS SUMMARY | 2024-10-17 16:35 | XMS_ITS | Clinical Summary ---
Author Organization [facility] Address [address] [place] [address] Phone Care Team Providers Care Helmet Hat Brim Cutter Name Role Phone Cody Capellanwna Inderjit PAC Primary Care Provider [phone]- [phone] Dago Solis DO Unavailable [phone] Allergies No known active allergies Medications lisinopril (PRINIVIL, ZESTRIL) 5 MG Tablet Take 1 Tablet by mouth daily. 5 Active rosuvastatin (CRESTOR) 10 MG Tablet Take 1 Tablet by mouth daily. 5 Active levothyroxine (SYNTHROID) 50 MCG Tablet Take 50 mcg by mouth daily. 4 Active tolterodine (DETROL LA) 4 MG CAPSULE SR 24 HR Take 1 Capsule by mouth daily. 5 Active multi-vitamins (Multi-Vitamin) Tablet Take 1 Tablet by mouth. Active Coenzyme Q10 200 MG Capsule Take 200 mg by mouth daily. Active Vitamin D3 (CHOLECALCIFERO L) 125 MCG Tablet Take 125 mcg by mouth daily. Active Emollient (COLLAGEN EX) by Apply externally route. Active Misc Natural Products (NEURIVA PO) Take by mouth. Ac tive Docusate Sodium (COLACE PO) Take by mouth. Act liyah Active Problems Problem Noted Date Diagnosed Date Elevated blood pressure reading 07/05/2024 Encounters Date Type Department Care Team Description 09/23/2024 9:55 AM CDT Lab [facility] [address] [phone] Lab, [facility] [place] Secondary polycythemia 09/23/2024 9:30 AM CDT Office Visit [facility] [address] [phone] Samantha Arevalo, COOK FROZEN DESSERT, THERAPY COORDINATOR Abnormal CT scan, kidney (Primary Dx); Secondary polycythemia; Leukocytosis, unspecified type 09/23/2024 Travel 07/26/2024 2:00 PM TRAINING AND DEVELOPMENT PROFESSIONAL Office Visit [facility] [address] [phone] Dago Solis, Polycythemia, secondary (Primary Dx); Hematuria, unspecified type 07/26/2024 Travel from Last 3 Months Social History Tobacco Use Types Packs/Day Years Used Date Smoking Tobacco: Every Day Cigarettes Smokeless Tobacco: Never Tobacco Cessation:Ready to Q uit: Not Asked; Counseling Given: Not Answered Alcohol Use Standard Drinks/Week Comments Not Currently 0 (1 standard drink = 0.6 oz pur e alcohol) Comments Unknown Sex and Gender Information Value Date Recorded Sex Assigned at Not on file Legal Sex Female 2:36 PM TRAINING AND DEVELOPMENT PROFESSIONAL Gender Identity Not on file Sexual Orientation Not on file Last Filed Vital Signs Vital Sign Reading Time Taken Comments Blood Pressure 150/90 09/23/2024 9:21 AM CDT Pulse 89 09/23/2024 9:21 AM CDT Temperature 36.4 C (97.5 F) 09/23/2024 9:21 AM CDT Respiratory Rate 18 09/23/2024 9:21 AM CDT Oxygen Saturation 96% 09/23/2024 9:21 AM CDT Inhaled Oxygen Concentration - - Weight 74.3 kg (163 lb 11.2 oz) 09/23/2024 9:21 AM CDT Height 167.6 cm (5' 6 ) 09/23/2024 9:21 AM CDT Body Mass Index 26.42 09/23/2024 9:21 AM CDT Plan of Treatment Upcoming Encounters Date Type Department Care Team (Late st Contact Info) Description 10/21/2024 10:00 AM CDT Office Visit [facility] [address] [phone] Nickolas Carvajal MD [address] [place], [place] [id number] Health Maintenance Due Date Last Done Comments Hepatitis C Virus (HCV) Screening 1955 Pneumococcal Immunization (50+ years) (1 of 2 - PCV) 1976 Colonoscopy 2002 Colorectal Cancer Screening 2002 Cologuard 12/12/2007 Immunochemical Fecal Occult Blood 12/12/2007 DEXA Bone Density 08/17/2015 08/16/2013 SARS-COV-2 Immunization ( season) 2024 01/31/2021, 01/06/2021 Influenza Immunization (Season Ended) 2025 03/25/2022, 04/07/2020, 04/02/2015, Additional history exists Mammogram 04/28/2025 04/28/2024, 110 02/2023, 04/09/2022, Additional history exists Respiratory Syncytial Virus (RSV) Immunization (Adult) (1 - 1-dose 75+ series) 2032 Zoster Immunization Completed 09/08/2020, 0 TdaP Immunization Completed 03/25/2022 Hepatitis B Immunization Aged Out No longer eligible based on patient's age to complete this topic Meningococcal Immunization (ACWY) Aged Out No longer eligible based on patient's age to complete this topic Rotavirus Immunization Aged Out No lo nger eligible based on patient's age to complete this topic Procedures Procedure Name Priority Date/Time Associated Diagnosis Comments CBC WITH AUTO DIFF OH Routine 09/23/2024 10:11 AM CDT from Last 3 Months Results * (ABNORMAL) CBC WITH AUTO DIFF OH (09/23/2024 10:11 AM CDT) WBC 8.5 4.0 - 10.0 10*3/uL [facility] HGB 16.5(H) 11.2 - 15.7 g/dL [facility] HCT 49.4(H) 34.1 - 44.9 % [facility] PLT 197 163 - 369 10*3/uL [facility] MPV 9.9 9.4 - 12.4 fL [facility] RBC 5.64(H) 3.93 - 5.22 10*6/uL [facility] MCV 88 79 - 95 fL [facility] MCH 29.3 25.6 - 32.2 pg [facility] MCHC 33.4 32.2 - 36.5 g/dL [facility] RDW 13.4 11.6 - 14.4 % [facility] Neutrophils % 53.9 36.0 - 66.0 % [facility] Lymphocytes % 37.4 19.0 - 40.0 % [facility] Monocytes % 5.3 4.1 - 12.1 % [facility] Eosinophils % 2.5 0.0 - 3.5 % [facility] Basophils % 0.7 0.0 - 1.0 % [facility] Absolute Neutrophils 4.6 1.4 - 6.6 10*3/uL [facility] Absolute Lymphocytes 3.2 0.8 - 4.0 10*3/uL [facility] Absolute Monocytes 0.5 0.2 - 1.2 10*3/uL [facility] Absolute Eosinophils 0.2 0.0 - 0.4 10*3/uL [facility] Absolute Basophils 0.1 0.0 - 0.1 10*3/uL [facility] 09/23/2024 10:1 1 AM CDT us Samantha Arevalo COOK FROZEN DESSERT, THERAPY COORDINATOR LAB SEND OUTS Final Result [facility] [place] [address], from Last 3 Months Insurance [facility] Care Teams Helmet Hat Brim Cutter Relationship Specialty Start Date End Date Dulce Capellan PAC [facility] [address] [facility] [address] [place] [address] PCP - General Physician Comfort Filler 06/17/24 Dago Solis DO [address] [place] [phone] Consulting Physician Oncology 06/17/24
== END 2024-10-17 15:56 | disposition home or self-care (01) ==
PROVIDERS: PCP Physician Assistant; Visit Provider Nurse Practitioner Family
DX: N28.1 Cyst of kidney, acquired (principal); R93.429 Abnormal radiologic findings on diagnostic imaging of unspecified kidney
CPT/HCPCS: 74183; A9577